=== PATIENT | female | born 1935 | race Caucasian/White ===

== ENCOUNTER 2019-08-02 10:17 | Outpatient (CLI) | payer MEDICARE, OTHER, SELFPAY ==
--- NOTE | 2019-08-03 06:46 | ONC FU_ITS ---
Dr. Kearney Patient Follow-Up Note Patient: Anastasiia Lopez Unit #: [id number]: 1935 Dicatated By: Eliecer Kearney M.D.Date of Visit:Aug 02, 2019 Onc Med Follow-up/Prog Note Chief Complaint: Breast cancer. History of Present Illness: This is an 83-year-old woman grade 2 infiltrating ductal carcinoma of the right breast, stage IIA (T2, N0, M0), ER/OH positive and HER-2/andrew negative. She had presented with a palpable lump in her right breast. Bilateral diagnostic mammogram and bilateral breast ultrasound on 12/18/2018 was BI-RADS Category 5, highly suggestive of malignancy. Findings included a high density spiculated soft tissue mass in the upper outer quadrant of the right breast at the 10:00 position. It measured 2.2 cm in diameter. There was architectural distortion extending anteriorly, posteriorly, and inferiorly from the mass lesion. Ultrasound showed a mass lesion of mixed decreased echotexture with posterior acoustic shadowing and irregular margins measuring 1.9 x 2.1 x 2.3 cm. Ultrasound-guided biopsy the right breast mass on 12/29/2018 showed grade 2 infiltrating ductal carcinoma. Breast prognostic profile ER positive at 99% and OH positive at 94%, both with strong intensity. The tumor was negative for overexpression of HER-2/andrew, 2+ by IHC and amplification ratio by FISH of 1.0 with 2.4 HER2 copies/cell. The Ki-67 was intermediate at 19%. I had seen her initially on 01/13/2019. Her her preliminary indication was that she did not want to pursue any further treatment for the breast cancer. However, after discussing it with her, she did agree to proceed with lumpectomy and axillary sentinel lymph node biopsy. The procedure was performed on 02/04/2019. Pathology showed grade 2 invasive ductal carcinoma measuring 2.4 cm in greatest dimension. The margins were not involved, the closest being the deep posterior margin measured at 0.4 cm. 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 There was no involvement in 1 axillary sentinel lymph node. She has been in good general health. Her other medical illnesses have been limited to degenerative arthritis and benign positional vertigo. She also has hyperlipidemia, but not requiring medication. She is a nonsmoker. I had seen her initially on 02/18/2019. She was agrreable to adjuvant hormonal therapy with an aromatase inhibitor. She opted not to take radiation. Her baseline Dexa scan showed osteopenia with T score -1.7 in the lumbar spine, -1.6 in the left hip, and -1.7 in the right hip. She began treatment with anastrozole 1 mg daily on 03/23/2019. She is seen for a followup visit. She has been feeling good generally. She has good energy and she has normal activity. ECOG score is 0. Her appetite is good. She has been trying to lose weight. She has no fever, night sweats, or hot flashes. She has had mild exertional dyspnea and she thinks she might have a mild case of asthma. She does not have cough, and she does not complain of chest pain. She has no GI complaints. She has frequent urination. She has some pain in her feet. She has no other joint or bone pain. She has no focal neurologic symptoms. Medications: Anastrozole 1 Tablet (of 1 mg) Oral daily, Glucosamine HCl 1 Tablet (of 1000 mg) Oral daily, healthy feet and nerve 1 Capsule daily Allergies: sulfa Review of Systems: Constitutional - Her energy is good. She has normal activity. Her appetite is good. She has been trying to lose weight. She has lost 2 pounds so far. No fever, chills, hot flashes, or night sweats. ECOG score is 0, ENMT - No sinus congestion/drainage. No mouth sores. No sore throat or difficulty swallowing, Hematologic/Lymphatic - She bruises easily, Respiratory - She has some shortness of breath with activity. No cough. No pleuritic pain or hemoptysis, Cardiovascular - No angina pain. No palpitations, Gastrointestinal - No nausea or vomiting. No heartburn or acid reflux. No diarrhea or constipation. No blood in the stool or black stools, Genitourinary (F) - No dysuria or hematuria. She has urinary frequency. No urgency or incontinence, Musculoskeletal - She has arthritis in her feet that has been unchanged for the last 10 years. She has no other joint or bone pain. , Integumentary - No skin complications, Neurologic - No headache or dizziness. No numbness/paresthesias or other focal neurologic symptoms, Psychiatric - No anxiety or depression. No insomnia. Vital Signs: Performed on Aug 02, 2019 10:31 Height - 65.50 in Weight - 156.2 lbs (LOW) BSA - 1.79 sq.m BMI - 25.60 Temperature - 98.4 F Pulse - 16 /min (LOW) Respiration - 78 /min (HIGH) BP - 158/94 mm(hg) (HIGH) O2 Sat - 97 % Pain - 0 Physical Examination: Constitutional - She looks good generally, Eyes - Sclerae nonicteric. Conjunctivae clear, ENMT - No lesions noted in the oral cavity, Hematologic/Lymphatic - No cervical, clavicular, or axillary adenopathy, Respiratory - Lungs are clear with good air movement bilaterally, Cardiovascular - Heart rhythm is regular. There is no murmur, gallop, or rub noted, Abdomen - Soft. Liver and spleen are not enlarged. There is no abdominal mass or ascites noted and there is no inguinal adenopathy, Extremities - Slight edema, Neurologic - No focal neurologic deficits noted. Impression: 1. Patient with grade 2 infiltrating ductal carcinoma of the right breast, stage IIA ( T2, N0, M0), ER/OH positive and HER-2/andrew negative. 2. She underwent lumpectomy with axillary sentinel lymph node biopsy on 02/04/2019. Her other medical illnesses include: 3. Hyperlipidemia, not requiring medication. 4. Degenerative arthritis. 5. Benign positional vertigo. She was agreeable to take adjuvant hormonal therapy, but she opted to not undergo radiation. On 03/23/2019 she began treatment with anastrozole 1 mg daily. Her baseline DEXA scan did show evidence of osteopenia with T score -1.7 in the lumbar spine, -1.6 in the left hip, and -1.7 in the right hip. Thus far she has been tolerating the anastrozole with no adverse effects other than her blood pressure is now mildly elevated, and she says she has never had high blood pressure before this. Plan: She will continue anastrozole 1 mg daily. She will come in to recheck her blood pressure at least once a week. If her blood pressure remains elevated, I will stop her treatment, at least temporarily. I will tentatively plan a followup visit in 3 months. Signed By: Eliecer Kearney M.D. <<Signature on File>>
== END 2019-08-02 10:18 | disposition home or self-care (01) ==
LOC: ONCMED 10:17
PROVIDERS: Family Provider Family Medicine; PCP Family Medicine; Visit Provider Internal Medicine Medical Oncology
DX: C50.411 Malignant neoplasm of upper-outer quadrant of right female breast (principal); Z17.0 Estrogen receptor positive status [ER+]; M19.90 Unspecified osteoarthritis, unspecified site; H81.10 Benign paroxysmal vertigo, unspecified ear; E78.5 Hyperlipidemia, unspecified; M85.88 Other specified disorders of bone density and structure, other site; Z79.811 Long term (current) use of aromatase inhibitors; M85.852 Other specified disorders of bone density and structure, left thigh; M85.851 Other specified disorders of bone density and structure, right thigh
CPT/HCPCS: 99214

== ENCOUNTER 2019-11-04 15:14 | Outpatient (CLI) | payer MEDICARE, OTHER, SELFPAY ==
--- NOTE | 2019-11-07 21:44 | ONC FU_ITS ---
Dr. Kearney Patient Follow-Up Note Patient: Anastasiia Lopez Unit #: [id number]: 1935 Dicatated By: Eliecer Kearney M.D.Date of Visit:November 04, 2019 Onc Med Follow-up/Prog Note Chief Complaint: Breast cancer. History of Present Illness: This is an 83 year-old woman grade 2 infiltrating ductal carcinoma of the right breast, stage IIA (T2, N0, M0), ER/KY positive and HER-2/andrew negative. She had presented with a palpable lump in her right breast. Bilateral diagnostic mammogram and bilateral breast ultrasound on 12/18/2018 was BI-RADS Category 5, highly suggestive of malignancy. Findings included a high density spiculated soft tissue mass in the upper outer quadrant of the right breast at the 10:00 position. It measured 2.2 cm in diameter. There was architectural distortion extending anteriorly, posteriorly, and inferiorly from the mass lesion. Ultrasound showed a mass lesion of mixed decreased echotexture with posterior acoustic shadowing and irregular margins measuring 1.9 x 2.1 x 2.3 cm. Ultrasound-guided biopsy the right breast mass on 12/29/2018 showed grade 2 infiltrating ductal carcinoma. Breast prognostic profile ER positive at 99% and KY positive at 94%, both with strong intensity. The tumor was negative for overexpression of HER-2/andrew, 2+ by IHC and amplification ratio by FISH of 1.0 with 2.4 HER2 copies/cell. The Ki-67 was intermediate at 19%. I had seen her initially on 01/13/2019. Her her preliminary indication was that she did not want to pursue any further treatment for the breast cancer. However, after discussing it with her, she did agree to proceed with lumpectomy and axillary sentinel lymph node biopsy. The procedure was performed on 02/04/2019. Pathology showed grade 2 invasive ductal carcinoma measuring 2.4 cm in greatest dimension. The margins were not involved, the closest being the deep posterior margin measured at 0.4 cm. 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 There was no involvement in 1 axillary sentinel lymph node. She has been in good general health. Her other medical illnesses have been limited to degenerative arthritis and benign positional vertigo. She also has hyperlipidemia, but not requiring medication. She is a nonsmoker. I had seen her initially on 02/18/2019. She was agrreable to adjuvant hormonal therapy with an aromatase inhibitor. She opted not to take radiation. Her baseline Dexa scan showed osteopenia with T score -1.7 in the lumbar spine, -1.6 in the left hip, and -1.7 in the right hip. She began treatment with anastrozole 1 mg daily on 03/23/2019. She stopped it approximately 6 weeks ago due to swelling in her legs and feet. She is seen for a followup visit. She has been feeling good generally. She says the swelling in her legs has almost completely resolved since she stopped taking the anastrozole. Her energy has been good. She says she is just lazy. She still has normal activity. Her appetite is good. She has no fever, night sweats, or hot flashes. She has no shortness of breath, cough, or chest pain. She recently had diarrhea for couple of days, but that has resolved. She has no other GI complaints. She has frequent urination. She has no significant joint or bone pain. She has occasional stress headache. She has some numbness/tingling in her right little finger. She has no other focal neurologic symptoms. Medications: Glucosamine HCl 1 Tablet (of 1000 mg) Oral daily, healthy feet and nerve 1 Capsule daily Allergies: sulfa Review of Systems: Constitutional - Her energy is good. She says she is just lazy. She still has normal activity. Her appetite is good. Her weight is stable. No fever, hot flashes, or night sweats. ECOG score is 0, ENMT - No sinus congestion/drainage. No mouth sores. No sore throat or difficulty swallowing, Hematologic/Lymphatic - She bruises easily, Respiratory - She has some shortness of breath with activity. No cough. No pleuritic pain or hemoptysis, Cardiovascular - No angina pain. No palpitations, Gastrointestinal - No nausea or vomiting. No heartburn or acid reflux. She recently had diarrhea for 2 days, but that has resolved. Bowels have otherwise been okay. No blood in the stool or black stools, Genitourinary (F) - No dysuria or hematuria. She has urinary frequency. No urgency or incontinence, Musculoskeletal - She was having swelling in her feet, now almost completely resolved. She has no significant joint or bone pain, Integumentary - No skin complications, Neurologic - She has occasional stress headache or dizziness. She has some numbness/tingling in her right little finger. She has no other focal neurologic symptoms, Psychiatric - No anxiety or depression. No insomnia. Vital Signs: Performed on November 04, 2019 15:23 Height - 65.50 in Weight - 157.0 lbs (HIGH) BSA - 1.79 sq.m BMI - 25.73 Temperature - 99.0 F (HIGH) Pulse - 75 /min Respiration - 20 /min BP - 155/85 mm(hg) (HIGH) O2 Sat - 97 % Pain - 0 Physical Examination: Constitutional - She looks good generally, Eyes - Sclerae nonicteric. Conjunctivae clear, ENMT - No lesions noted in the oral cavity, Hematologic/Lymphatic - No cervical, clavicular, or axillary adenopathy, Respiratory - Lungs are clear with good air movement bilaterally, Cardiovascular - Heart rhythm is regular. There is no murmur, gallop, or rub noted, Abdomen - Soft. Liver and spleen are not enlarged. There is no abdominal mass or ascites noted and there is no inguinal adenopathy, Extremities - Trace edema, Neurologic - No focal neurologic deficits noted. Impression: 1. Patient with grade 2 infiltrating ductal carcinoma of the right breast, stage IIA ( T2, N0, M0), ER/KY positive and HER-2/andrew negative. 2. She underwent lumpectomy with axillary sentinel lymph node biopsy on 02/04/2019. Her other medical illnesses include: 3. Hyperlipidemia, not requiring medication. 4. Degenerative arthritis. 5. Benign positional vertigo. She was agreeable to take adjuvant hormonal therapy, but she opted to not undergo radiation. On 03/23/2019 she began treatment with anastrozole 1 mg daily. Her baseline DEXA scan did show evidence of osteopenia with T score -1.7 in the lumbar spine, -1.6 in the left hip, and -1.7 in the right hip. She had initially been tolerating the anastrozole with no adverse effects other than her blood pressure had become mildly elevated. Approximately 6 weeks ago she stopped the anastrozole due to swelling in her legs and feet. The swelling has since then improved. Her blood pressure, though, remains mildly elevated. Plan: I will have her start treatment with triamterene/HCTZ. I will have her come in to check blood pressure at least once a week. Whenever it stabilizes in normal range I will plan to have her restart adjuvant hormonal therapy with exemestane, but that will be subject to verification of insurance coverage. Signed By: Eliecer Kearney M.D. <<Signature on File>>
== END 2019-11-04 15:15 | disposition home or self-care (01) ==
LOC: ONCMED 15:18
PROVIDERS: PCP Family Medicine; Visit Provider Internal Medicine Medical Oncology
DX: C50.411 Malignant neoplasm of upper-outer quadrant of right female breast (principal); Z17.0 Estrogen receptor positive status [ER+]; E78.5 Hyperlipidemia, unspecified; M19.90 Unspecified osteoarthritis, unspecified site; H81.10 Benign paroxysmal vertigo, unspecified ear; R03.0 Elevated blood-pressure reading, without diagnosis of hypertension; M79.89 Other specified soft tissue disorders; T45.1X5D Adverse effect of antineoplastic and immunosuppressive drugs, subsequent encounter; Z92.23 Personal history of estrogen therapy; Z79.899 Other long term (current) drug therapy
CPT/HCPCS: 99214

== ENCOUNTER 2019-11-16 11:23 | Outpatient (CLI) | payer MEDICARE, OTHER, SELFPAY ==
[2019-11-16 12:01] LABS: Basophils % 0.5 %; Eosinophils # 0.1 10^3/uL (0.0-0.8); Eosinophils % 1.6 %; Hematocrit 45.5 % (37.0-47.0); Hemoglobin 14.6 g/dL (11.5-15.3); Lymphocytes # 2.5 10^3/uL (0.8-4.8); Lymphocytes % 40.4 %; Mean Corpuscular HGB Conc 32.1 g/dL (30.0-36.0); Mean Corpuscular Hemoglobin 31.3 pg (28.0-34.0); Mean Corpuscular Volume 97.4 fL (81-99); Mean Platelet Volume 10.1 fL (7.4-10.4); Monocytes # 0.5 10^3/uL (0.2-0.9); Monocytes % 7.8 %; Neutrophils # 3.1 10^3/uL (1.8-7.7); Neutrophils % 49.5 %; Nucleated Red Blood Cells % 0 %; Platelet Count 190 10^3/cmm (130-400); Red Blood Count 4.67 10^6/uL (4.1-5.3); Red Cell Distribution Width 12.9 % (12.1-15.1); White Blood Count 6.2 10^3/uL (4.0-10.0)
[2019-11-16 13:03] LABS: Alanine Aminotransferase 10 U/L (0-33); Albumin Level 4.1 g/dL (3.5-5.2); Alkaline Phosphatase 62 IU/L (35-105); Anion Gap 13.9 (5-19); Aspartate Amino Transferase 19 U/L (0-32); Blood Urea Nitrogen 16 mg/dL (8-23); Calcium 10.4 mg/dL (8.5-10.5); Carbon Dioxide 29 mmol/L (22-29); Chloride 98 mmol/L (98-107); Globulin 2.8 g/dL (1.3-4.6); Glucose 97 mg/dL (65-115); Osmolality Calculated 280 mOsm/kg (285-295); Potassium 3.9 mmol/L (3.5-5.1); Sodium 137 mmol/L (136-145); Total Protein 6.9 g/dL (6.6-8.7)
== END 2019-11-16 11:24 | disposition home or self-care (01) ==
LOC: ONCMED 11:27
PROVIDERS: PCP Family Medicine; Visit Provider Nurse Practitioner
DX: C50.411 Malignant neoplasm of upper-outer quadrant of right female breast (principal); Z17.0 Estrogen receptor positive status [ER+]
CPT/HCPCS: 36415; 80053; 85025

== ENCOUNTER 2019-12-10 10:20 | Outpatient (CLI) | payer MEDICARE, OTHER, SELFPAY ==
[2019-12-10 10:57] LABS: Basophils % 0.7 %; Eosinophils # 0.1 10^3/uL (0.0-0.8); Eosinophils % 1.5 %; Hematocrit 44.8 % (37.0-47.0); Hemoglobin 14.5 g/dL (11.5-15.3); Lymphocytes # 2.4 10^3/uL (0.8-4.8); Lymphocytes % 39.1 %; Mean Corpuscular HGB Conc 32.4 g/dL (30.0-36.0); Mean Corpuscular Hemoglobin 31.1 pg (28.0-34.0); Mean Corpuscular Volume 96.1 fL (81-99); Mean Platelet Volume 9.6 fL (7.4-10.4); Monocytes # 0.5 10^3/uL (0.2-0.9); Monocytes % 7.8 %; Neutrophils # 3.1 10^3/uL (1.8-7.7); Neutrophils % 50.6 %; Nucleated Red Blood Cells % 0 %; Platelet Count 205 10^3/cmm (130-400); Red Blood Count 4.66 10^6/uL (4.1-5.3); Red Cell Distribution Width 12.9 % (12.1-15.1)
[2019-12-10 11:48] LABS: Alanine Aminotransferase 13 U/L (0-33); Albumin Level 4.2 g/dL (3.5-5.2); Alkaline Phosphatase 63 IU/L (35-105); Anion Gap 14.9 (5-19); Aspartate Amino Transferase 19 U/L (0-32); Blood Urea Nitrogen 14 mg/dL (8-23); Carbon Dioxide 30 mmol/L (22-29); Chloride 96 mmol/L (98-107); Globulin 2.4 g/dL (1.3-4.6); Glucose 96 mg/dL (65-115); Osmolality Calculated 280 mOsm/kg (285-295); Potassium 3.9 mmol/L (3.5-5.1); Sodium 137 mmol/L (136-145); Total Bilirubin 0.8 mg/dL (0.15-1.2); Total Protein 6.6 g/dL (6.6-8.7)
== END 2019-12-10 10:21 | disposition home or self-care (01) ==
LOC: ONCMED 10:24
PROVIDERS: PCP Family Medicine; Visit Provider Internal Medicine Medical Oncology
DX: C50.411 Malignant neoplasm of upper-outer quadrant of right female breast (principal); Z17.0 Estrogen receptor positive status [ER+]
CPT/HCPCS: 36415; 80053; 85025

== ENCOUNTER 2019-12-14 13:34 | Outpatient (CLI) | payer MEDICARE, OTHER, SELFPAY ==
--- NOTE | 2019-12-16 13:49 | ONC FU_ITS ---
[facility] Patient Note Patient: Anastasiia Lopez Unit #: [id number]: 1935 Dictated By: Letty KamaraDate of Visit: Dec 14, 2019 Onc MED Follow-Up/Prog Note Chief Complaint: Breast cancer. History of Present Illness: Ms Lopez is an 83 year-old woman grade 2 infiltrating ductal carcinoma of the right breast, stage IIA (T2, N0, M0), ER/MT positive and HER-2/andrew negative. She had presented with a palpable lump in her right breast. Bilateral diagnostic mammogram and bilateral breast ultrasound on 12/18/2018 was BI-RADS Category 5, highly suggestive of malignancy. Findings included a high density spiculated soft tissue mass in the upper outer quadrant of the right breast at the 10:00 position. It measured 2.2 cm in diameter. There was architectural distortion extending anteriorly, posteriorly, and inferiorly from the mass lesion. Ultrasound showed a mass lesion of mixed decreased echotexture with posterior acoustic shadowing and irregular margins measuring 1.9 x 2.1 x 2.3 cm. Ultrasound-guided biopsy the right breast mass on 12/29/2018 showed grade 2 infiltrating ductal carcinoma. Breast prognostic profile ER positive at 99% and MT positive at 94%, both with strong intensity. The tumor was negative for overexpression of HER-2/andrew, 2+ by IHC and amplification ratio by FISH of 1.0 with 2.4 HER2 copies/cell. The Ki-67 was intermediate at 19%. Dr Kearney had seen her initially on 01/13/2019. Her her preliminary indication was that she did not want to pursue any further treatment for the breast cancer. However, after discussing it with her, she did agree to proceed with lumpectomy and axillary sentinel lymph node biopsy. The procedure was performed on 02/04/2019. Pathology showed grade 2 invasive ductal carcinoma measuring 2.4 cm in greatest dimension. The margins were not involved, the closest being the deep posterior margin measured at 0.4 cm. 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 There was no involvement in 1 axillary sentinel lymph node. She has been in good general health. Her other medical illnesses have been limited to degenerative arthritis and benign positional vertigo. She also has hyperlipidemia, but not requiring medication. She is a nonsmoker. Dr Kearney had seen her initially on 02/18/2019. She was agrreable to adjuvant hormonal therapy with an aromatase inhibitor. She opted not to take radiation. Her baseline Dexa scan showed osteopenia with T score -1.7 in the lumbar spine, -1.6 in the left hip, and -1.7 in the right hip. She began treatment with anastrozole 1 mg daily on 03/23/2019. She stopped it due to swelling in her legs and feet. Ms Lopez She was seen for a followup visit in October 2019. She had been feeling good generally. She says the swelling in her legs had almost completely resolved since she stopped taking the anastrozole. She was started on triamterene/HCTZ and is tolerated this well. Her blood pressures have become more normal. Her only concern is that she is developed skin tags and started taking the HCTZ. She has not yet started the exemestane. She states she is in no hurry to do so. 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 She lives alone and has no assistance therefore cannot afford to be sick . She feels the swelling is better and is content with her blood pressure as it is. She states she is just trying to feel pretty good overall. She request to wait another month and then talk about adding the eczema stain at that time. She denies any shortness of breath orthopnea. She denies any chest pain or palpitations. She is eating good and again performed status is normal for her. 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 Her ECOG is 0. Past Medical History: Benign paroxysmal positional vertigo Hyperlipidemia Osteoarthritis Past Surgical History: Ultrasound-guided needle biopsy of the right breast in 2018 Cataract surgery in 2012 Colonoscopy in 2009 Right inguinal hernia repair in 1969 Allergies: sulfa Medications: Glucosamine HCl 1 Tablet (of 1000 mg) Oral daily healthy feet and nerve 1 Capsule daily Triamterene-HCTZ 1 Capsule (of 37.5-25 mg) Oral daily Family History: Ms. Lopez's mother at age 90: stroke. Ms. Lopez's father at age 93: old age, and stroke. Ms. Lopez has 1 son who is : brain cancer, and aids. Father at age 93 due to stroke complicating surgery for cardiac aneurysm. Mother of stroke at age 90. She has no siblings. Son at age 41 of HIV related brain cancer. Social History: Ms. Lopez is and she is retired. Ms. Lopez has never smoked. She is an active drinker. She is a nonsmoker. She has occasional alcohol use, limited to 3-4 oz of cam 3 to 4 times out of the year. Review Of Symptoms: Constitutional Denies fevers, chills, night sweats, excessive fatigue or weight loss. 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 Allergic/Immunologic No reactions. Eyes Denies significant visual changes. No diplopia. No amaurosis. ENMT Denies changes in hearing, sore throat, mouth sores, difficulty or changes in swallowing ability, and/or sinus drainage. Endocrine No diabetes, thyroid disease or hormone replacement. Denies hot flashes or night sweats. Hematologic/Lymphatic Denies easy bruising or bleeding. The patient denies any tender or palpable lymph nodes. Respiratory Denies dyspnea on exertion, chest pain, cough or hemoptysis. Denies orthopnea. Cardiovascular Denies anginal chest pain, palpitations or orthopnea. Gastrointestinal Denies nausea, vomiting, diarrhea, GI bleeding, or constipation. Denies change in bowel habits and/or stool color, no heartburn or early satiety. Genitourinary (F) No hematuria, hesitancy, incontinence, vaginal bleeding, discharge or other problems with urination. Musculoskeletal Denies joint pain, swelling or redness. No decreased range of motion. Integumentary Denies chronic rashes, inflammation, ulcerations or skin changes. Neurologic Denies headache, blurred vision, and no areas of focal weakness or numbness. Normal gait. No sensory problems. Psychiatric Denies insomnia, depression, lg or mood swings. Vital Signs: Performed on Dec 14, 2019 14:06 Height - 65.50 in Weight - 152.8 lbs (LOW) BSA - 1.77 sq.m BMI - 25.04 Temperature - 98.8 F Pulse - 70 /min Respiration - 17 /min BP - 153/80 mm(hg) (HIGH) O2 Sat - 95 % (LOW) Pain - 0,0 - Fully active, able to carry on all predisease activities without restrictions. (ECOG) Physical Examination: Constitutional Alert, oriented, no acute distress. Skin pink, warm and dry. Head Normocephalic; atraumatic. Eyes Conjunctivae and sclerae are clear and without icterus. Pupils are reactive and equal. ENMT No oral exudates, ulcers, masses, thrush or mucositis. Oropharynx clear. Tongue normal. Neck Supple without masses or thyromegaly. No jugular venous distension. Hematologic/Lymphatic No petechiae or purpura. No tender or palpable lymph nodes in the cervical or supraclavicular areas. Respiratory Lungs are clear to auscultation without rhonchi or wheezing. Cardiovascular Regular rate and rhythm of heart without murmurs,clicks, gallops or rubs. Abdomen Non-tender, non-distended, no masses or ascites. Good bowel sounds noted in all quads. No guarding or rebound tenderness. No pulsatile masses. Back/Spine Non-tender to palpation. Extremities No visible deformities, no cyanosis, clubbing or edema. Musculoskeletal No tenderness or swelling, normal range of motion without obvious weakness. Integumentary No rashes or lesions. Neurologic No sensory or motor deficits, normal cerebellar function, normal gait. Psychiatric Alert and oriented times three. Coherent speech. Verbalizes understanding of our discussions today. Laboratory:Test performed on Dec 10, 2019 10:40 Sodium 137 mmol/L Potassium 3.9 mmol/L Chloride 96 mmol/L CO2 30 mmol/L Anion Gap 14.9 BUN 14 mg/dL Creatinine 0.8 mg/dL Cr Clearance (Est) 59.9000 mL/min Glucose 96 mg/dL Calcium 10.0 mg/dL Protein, Total 6.6 g/dL Albumin 4.2 g/dL Globulin 2.4 g/dL Bilirubin, Total 0.8 mg/dL ALT (SGPT) 13 U/L AST (SGOT) 19 U/L Alkaline Phosphatase 63 IU/L WBC 6.0 10 3/uL RBC 4.66 10 6/uL HGB 14.5 g/dL HCT 44.8 % MCV 96.1 fL MCH 31.1 pg MCHC 32.4 g/dL RDW 12.9 % Platelet Count 205 10 3/cmm MPV 9.6 fL Neutrophils 3.1 10 3/uL Lymphocytes 2.4 10 3/uL Monocytes 0.5 10 3/uL Eosinophils 0.1 10 3/uL Basophils 0.0 10 3/uL Neutrophil % 50.6 % Lymphocyte % 39.1 % Monocyte % 7.8 % Eosinophil % 1.5 % Basophils % 0.7 % NRBC % 0 % Impression: 1. Patient with grade 2 infiltrating ductal carcinoma of the right breast, stage IIA ( T2, N0, M0), ER/MT positive and HER-2/andrew negative. 2. She underwent lumpectomy with axillary sentinel lymph node biopsy on 02/04/2019. Her other medical illnesses include: 3. Hyperlipidemia, not requiring medication. 4. Degenerative arthritis. 5. Benign positional vertigo. She was agreeable to take adjuvant hormonal therapy, but she opted to not undergo radiation. On 03/23/2019 she began treatment with anastrozole 1 mg daily. Her baseline DEXA scan did show evidence of osteopenia with T score -1.7 in the lumbar spine, -1.6 in the left hip, and -1.7 in the right hip. She had initially been tolerating the anastrozole with no adverse effects other than her blood pressure had become mildly elevated. Approximately 6 weeks ago she stopped the anastrozole due to swelling in her legs and feet. The swelling has since then improved. Her blood pressure is running normal at home but is slightly elevated here in the clinic, but overall improved. Plan: 1. continue with Triamterene/HCTZ. 2. She wishes to hold on the exemestane for another month. 3. Labs from December 10, 2019 were reviewed in detail and discussed with her and a copy was given to her. WBC 6.0, hemoglobin 14.5, platelets 205,000 ANC is 3100. Potassium 3.9 creatinine 0.8 random glucose 96 LFTs are normal. 4. She will be due for mammogram after December 18. This will be bilateral diagnostic and compared to the last one on the right breast which was done on December 18, 2018. 5. We will plan to see her back in 1 month with CBC CMP which time we will revisit her starting the exemestane. She states she is more concerned about the blood pressure then she has the breast cancer and just does not want to start the exemestane at this point. 7. Ms Lopez was instructed to call us in the interim if questions or problems arise. Signed By: Letty Kamara-, [facility] Eliecer Kearney MD <<Signature on File>>
== END 2019-12-14 13:35 | disposition home or self-care (01) ==
LOC: ONCMED 13:40
PROVIDERS: PCP Family Medicine; Visit Provider Nurse Practitioner
DX: C50.411 Malignant neoplasm of upper-outer quadrant of right female breast (principal); Z17.0 Estrogen receptor positive status [ER+]; E78.5 Hyperlipidemia, unspecified; M19.90 Unspecified osteoarthritis, unspecified site; H81.10 Benign paroxysmal vertigo, unspecified ear; M85.80 Other specified disorders of bone density and structure, unspecified site; Z92.23 Personal history of estrogen therapy; Z79.899 Other long term (current) drug therapy
CPT/HCPCS: 99214

== ENCOUNTER 2019-12-22 10:29 | Outpatient (CLI) | payer MEDICARE, OTHER, SELFPAY ==
--- NOTE | 2019-12-22 10:35 | MM_ITS ---
WS: [id number] BILATERAL DIGITAL DIAGNOSTIC MAMMOGRAM MAMMOGRAPHY WITH CAD CLINICAL INFORMATION: HX OF BREAST CA COMPARISON: 7 TECHNIQUE: Bilateral CC, MLO, and ML views. FINDINGS: Scattered fibroglandular densities bilaterally. Vascular calcification. Interval postoperative change s right lumpectomy with resection of the previous described mammographic lesion. Scarring right breast with treatment-related changes. Satisfactory postoperative appearance. No suspicious focal mass, asymmetry, calcifications, or architectural distortion. MM/[place] [id number] IMPRESSION: BI-RADS: 2-Benign FOLLOW UP: 1 Year Follow-up Recommend return to annual diagnostic mammography.
== END 2019-12-22 10:30 | disposition home or self-care (01) ==
LOC: RADSHAW 10:33
PROVIDERS: PCP Family Medicine; Visit Provider Nurse Practitioner
DX: Z85.3 Personal history of malignant neoplasm of breast (principal)
CPT/HCPCS: 77066

== ENCOUNTER 2020-01-14 09:17 | Outpatient (CLI) | payer MEDICARE, OTHER, SELFPAY ==
[2020-01-14 09:39] LABS: Basophils % 0.6 %; Eosinophils # 0.1 10^3/uL (0.0-0.8); Eosinophils % 1.2 %; Hematocrit 44.1 % (37.0-47.0); Hemoglobin 14.1 g/dL (11.5-15.3); Lymphocytes # 1.6 10^3/uL (0.8-4.8); Lymphocytes % 31.3 %; Mean Corpuscular Hemoglobin 30.5 pg (28.0-34.0); Mean Corpuscular Volume 95.2 fL (81-99); Mean Platelet Volume 9.3 fL (7.4-10.4); Monocytes # 0.6 10^3/uL (0.2-0.9); Monocytes % 11.8 %; Neutrophils # 2.74 10^3/uL (1.8-7.7); Neutrophils % 54.9 %; Nucleated Red Blood Cells % 0 %; Platelet Count 185 10^3/cmm (130-400); Red Blood Count 4.63 10^6/uL (4.1-5.3)
[2020-01-14 10:04] LABS: Alanine Aminotransferase 13 U/L (0-33); Albumin Level 4.1 g/dL (3.5-5.2); Alkaline Phosphatase 64 IU/L (35-105); Anion Gap 12.9 (5-19); Aspartate Amino Transferase 22 U/L (0-32); Blood Urea Nitrogen 13 mg/dL (8-23); Calcium 9.1 mg/dL (8.5-10.5); Carbon Dioxide 29 mmol/L (22-29); Chloride 100 mmol/L (98-107); Globulin 2.7 g/dL (1.3-4.6); Glucose 102 mg/dL (65-115); Osmolality Calculated 282 mOsm/kg (285-295); Potassium 3.9 mmol/L (3.5-5.1); Sodium 138 mmol/L (136-145); Total Bilirubin 0.9 mg/dL (0.15-1.2); Total Protein 6.8 g/dL (6.6-8.7)
== END 2020-01-14 09:18 | disposition home or self-care (01) ==
LOC: ONCMED 09:23
PROVIDERS: PCP Family Medicine; Visit Provider Nurse Practitioner
DX: C50.411 Malignant neoplasm of upper-outer quadrant of right female breast (principal); Z17.0 Estrogen receptor positive status [ER+]; I10 Essential (primary) hypertension
CPT/HCPCS: 80053; 85025

== ENCOUNTER 2020-01-18 14:40 | Outpatient (CLI) | payer MEDICARE, OTHER, SELFPAY ==
--- NOTE | 2020-01-22 13:26 | ONC FU_ITS ---
Dr. Kearney Patient Follow-Up Note Patient: Anastasiia Lopez Unit #: [id number]: 1935 Dicatated By: Eliecer Kearney M.D.Date of Visit:Jan 18, 2020 Onc Med Follow-up/Prog Note Chief Complaint: Breast cancer. History of Present Illness: This is an 83 year-old woman grade 2 infiltrating ductal carcinoma of the right breast, stage IIA (T2, N0, M0), ER/ID positive and HER-2/andrew negative. She had presented with a palpable lump in her right breast. Bilateral diagnostic mammogram and bilateral breast ultrasound on 12/18/2018 was BI-RADS Category 5, highly suggestive of malignancy. Findings included a high density spiculated soft tissue mass in the upper outer quadrant of the right breast at the 10:00 position. It measured 2.2 cm in diameter. There was architectural distortion extending anteriorly, posteriorly, and inferiorly from the mass lesion. Ultrasound showed a mass lesion of mixed decreased echotexture with posterior acoustic shadowing and irregular margins measuring 1.9 x 2.1 x 2.3 cm. Ultrasound-guided biopsy the right breast mass on 12/29/2018 showed grade 2 infiltrating ductal carcinoma. Breast prognostic profile ER positive at 99% and ID positive at 94%, both with strong intensity. The tumor was negative for overexpression of HER-2/andrew, 2+ by IHC and amplification ratio by FISH of 1.0 with 2.4 HER2 copies/cell. The Ki-67 was intermediate at 19%. I had seen her initially on 01/13/2019. Her her preliminary indication was that she did not want to pursue any further treatment for the breast cancer. However, after discussing it with her, she did agree to proceed with lumpectomy and axillary sentinel lymph node biopsy. The procedure was performed on 02/04/2019. Pathology showed grade 2 invasive ductal carcinoma measuring 2.4 cm in greatest dimension. The margins were not involved, the closest being the deep posterior margin measured at 0.4 cm. 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 There was no involvement in 1 axillary sentinel lymph node. She has been in good general health. Her other medical illnesses have been limited to degenerative arthritis and benign positional vertigo. She also has hyperlipidemia, but not requiring medication. She is a nonsmoker. I had seen her initially on 02/18/2019. She was agrreable to adjuvant hormonal therapy with an aromatase inhibitor. She opted not to take radiation. Her baseline Dexa scan showed osteopenia with T score -1.7 in the lumbar spine, -1.6 in the left hip, and -1.7 in the right hip. She began treatment with anastrozole 1 mg daily on 03/23/2019. She had stopped it somewhere around the beginning of September due to swelling in her legs and feet. I had seen her for a follow-up visit on 11/04/2019. At that point her blood pressure was still elevated, and I had her start triamterene/HCTZ for his hypertension and swelling. She is seen for a followup visit. She has been feeling good generally, but she recently stopped the triamterene/HCTZ because she was breaking out with itchy bumps in her neck/upper chest area. Overall her energy is better now. She has normal activity. Her appetite is good. She has not had fever. She has had hot flashes since she started menopause around age 51. She has no shortness of breath, cough, or chest pain. She has no GI or complaints. She has burning in her toes, for which she is taking chondroitin sulfate. She has no significant joint or bone pain. She has no focal neurologic symptoms. Medications: Glucosamine HCl 1 Tablet (of 1000 mg) Oral daily, healthy feet and nerve 1 Capsule daily, Triamterene-HCTZ 1 Capsule (of 37.5-25 mg) Oral daily Allergies: sulfa Review of Systems: Constitutional - She has been feeling good generally. Her energy has improved. She has normal activity without restrictions. Her appetite is good and weight is stable. No fever or night sweats. She has frequent hot flashes, which is unchanged. ECOG score is 0, ENMT - No sinus congestion/drainage. No mouth sores. No sore throat or difficulty swallowing, Hematologic/Lymphatic - No abnormal bruising or bleeding, Respiratory - No shortness of breath. No cough. No pleuritic pain or hemoptysis, Cardiovascular - No angina pain. No palpitations, Gastrointestinal - No nausea or vomiting. No heartburn or acid reflux. No diarrhea or constipation. No blood in the stool or black stools, Genitourinary (F) - No dysuria or hematuria. No urinary frequency. No urgency or incontinence, Musculoskeletal - No joint or bone pain, Integumentary - She has been having a rash to her neck/chest area for a few weeks, Neurologic - No headache or dizziness. No numbness/tingling, but she has burning in her toes. No other focal neurologic symptoms, Psychiatric - No anxiety or depression. No insomnia. Vital Signs: Performed on Jan 18, 2020 14:54 Height - 65.50 in Weight - 152.8 lbs BSA - 1.77 sq.m BMI - 25.04 Temperature - 98.7 F Pulse - 71 /min Respiration - 20 /min BP - 140/90 mm(hg) O2 Sat - 99 % Pain - 0 Physical Examination: Constitutional - She looks good generally, Eyes - Sclerae nonicteric. Conjunctivae clear, ENMT - No lesions noted in the oral cavity, Hematologic/Lymphatic - No cervical, clavicular, or axillary adenopathy, Respiratory - Lungs are clear with good air movement bilaterally, Cardiovascular - Heart rhythm is regular. There is no murmur, gallop, or rub noted, Abdomen - Soft. Liver and spleen are not enlarged. There is no abdominal mass or ascites noted and there is no inguinal adenopathy, Extremities - No edema, Integumentary - She has scattered, small erythematous lesions in the neck and upper trunk area, Neurologic - No focal neurologic deficits noted. Impression: 1. Patient with grade 2 infiltrating ductal carcinoma of the right breast, stage IIA ( T2, N0, M0), ER/ID positive and HER-2/andrew negative. 2. She underwent lumpectomy with axillary sentinel lymph node biopsy on 02/04/2019. Her other medical illnesses include: 3. Hyperlipidemia, not requiring medication. 4. Degenerative arthritis. 5. Benign positional vertigo. She was agreeable to take adjuvant hormonal therapy, but she opted to not undergo radiation. On 03/23/2019 she began treatment with anastrozole 1 mg daily. Her baseline DEXA scan did show evidence of osteopenia with T score -1.7 in the lumbar spine, -1.6 in the left hip, and -1.7 in the right hip. She had initially been tolerating the anastrozole with no adverse effects other than her blood pressure had become mildly elevated. Sometime around the end of September she had stopped the anastrozole due to swelling in her legs and feet. The swelling had then improved somewhat, but her blood pressure remained elevated. Following her visit in October 2019 she had started triamterene/HCTZ, but that recently was stopped because of a skin eruption. She has otherwise been feeling good and overall she appears to be doing well clinically with no evidence of recurrence of the breast cancer. Her blood pressure, though, is still a little elevated. Plan: She will remain off the triamterene/HCTZ. She will now start amlodipine 5 mg daily for the hypertension. I will see her again in 1 month and at that point I hope to restart her adjuvant hormonal therapy. Signed By: Eliecer Kearney M.D. <<Signature on File>>
== END 2020-01-18 14:41 | disposition home or self-care (01) ==
LOC: ONCMED 14:44
PROVIDERS: PCP Family Medicine; Visit Provider Internal Medicine Medical Oncology
DX: C50.411 Malignant neoplasm of upper-outer quadrant of right female breast (principal); I10 Essential (primary) hypertension; T45.1X5D Adverse effect of antineoplastic and immunosuppressive drugs, subsequent encounter; E78.5 Hyperlipidemia, unspecified; M19.90 Unspecified osteoarthritis, unspecified site; H81.10 Benign paroxysmal vertigo, unspecified ear; Z17.0 Estrogen receptor positive status [ER+]; Z92.23 Personal history of estrogen therapy
CPT/HCPCS: 99214

== ENCOUNTER 2020-02-23 15:41 | Outpatient (CLI) | payer MEDICARE, OTHER, SELFPAY ==
--- NOTE | 2020-02-27 11:09 | ONC FU_ITS ---
Dr. Kearney Patient Follow-Up Note Patient: Anastasiia Lopez Unit #: [id number]: 1935 Dicatated By: Eliecer Kearney M.D.Date of Visit:Feb 23, 2020 Onc Med Follow-up/Prog Note Chief Complaint: Breast cancer. History of Present Illness: This is an 84 year-old woman grade 2 infiltrating ductal carcinoma of the right breast, stage IIA (T2, N0, M0), ER/NV positive and HER-2/andrew negative. She had presented with a palpable lump in her right breast. Bilateral diagnostic mammogram and bilateral breast ultrasound on 12/18/2018 was BI-RADS Category 5, highly suggestive of malignancy. Findings included a high density spiculated soft tissue mass in the upper outer quadrant of the right breast at the 10:00 position. It measured 2.2 cm in diameter. There was architectural distortion extending anteriorly, posteriorly, and inferiorly from the mass lesion. Ultrasound showed a mass lesion of mixed decreased echotexture with posterior acoustic shadowing and irregular margins measuring 1.9 x 2.1 x 2.3 cm. Ultrasound-guided biopsy the right breast mass on 12/29/2018 showed grade 2 infiltrating ductal carcinoma. Breast prognostic profile ER positive at 99% and NV positive at 94%, both with strong intensity. The tumor was negative for overexpression of HER-2/andrew, 2+ by IHC and amplification ratio by FISH of 1.0 with 2.4 HER2 copies/cell. The Ki-67 was intermediate at 19%. I had seen her initially on 01/13/2019. Her her preliminary indication was that she did not want to pursue any further treatment for the breast cancer. However, after discussing it with her, she did agree to proceed with lumpectomy and axillary sentinel lymph node biopsy. The procedure was performed on 02/04/2019. Pathology showed grade 2 invasive ductal carcinoma measuring 2.4 cm in greatest dimension. The margins were not involved, the closest being the deep posterior margin measured at 0.4 cm. 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 There was no involvement in 1 axillary sentinel lymph node. She has been in good general health. Her other medical illnesses have been limited to degenerative arthritis and benign positional vertigo. She also has hyperlipidemia, but not requiring medication. She is a nonsmoker. I had seen her initially on 02/18/2019. She was agrreable to adjuvant hormonal therapy with an aromatase inhibitor. She opted not to take radiation. Her baseline Dexa scan showed osteopenia with T score -1.7 in the lumbar spine, -1.6 in the left hip, and -1.7 in the right hip. She began treatment with anastrozole 1 mg daily on 03/23/2019. She had stopped it somewhere around the beginning of September due to swelling in her legs and feet. I had seen her for a follow-up visit on 11/04/2019. At that point her blood pressure was still elevated, and I had her start triamterene/HCTZ for her hypertension and swelling. However, within a month it had to be stopped due to development of a hypersensitivity skin eruption. She was then started on amlodipine 5 mg daily, which had to be stopped because of swelling. As of 01/27/2020 her blood pressure medication was changed to metoprolol 25 mg twice daily. She is seen for a followup visit. Thus far she has been able to tolerate the metoprolol with no adverse effects. She says she is feeling fine other than she has had some decline in her activity tolerance which she just attributes to being lazy. Her ECOG score is 1. Her appetite is good. She has not had fever. She says she always has hot flashes. She has no shortness of breath, cough, or chest pain. She has no GI or complaints. She has normal arthritis pain in her feet. She has no focal neurologic symptoms. Medications: Glucosamine HCl 1 Tablet (of 1000 mg) Oral daily, healthy feet and nerve 1 Capsule daily, Triamterene-HCTZ 1 Capsule (of 37.5-25 mg) Oral daily Allergies: sulfa Review of Systems: Constitutional - She is doing well. She says her energy is good, but she feels lazy. Her appetite is good and her weight is up a few pounds. No fevers or night sweats. She has constant hot flashes, which is chronic for her. ECOG score is 1, ENMT - No sinus congestion/drainage. No mouth sores. No sore throat or difficulty swallowing, Hematologic/Lymphatic - No abnormal bruising or bleeding, Respiratory - No shortness of breath. No cough. No pleuritic pain or hemoptysis, Cardiovascular - No angina pain. No palpitations, Gastrointestinal - No nausea or vomiting. No heartburn or acid reflux. No diarrhea or constipation. No blood in the stool or black stools, Genitourinary (F) - No dysuria or hematuria. No urinary frequency. No urgency or incontinence, Musculoskeletal - She has arthritis pain in her feet, Integumentary - No skin complications, Neurologic - No headache or dizziness. No numbness or tingling. No other focal neurologic symptoms, Psychiatric - No anxiety or depression. No insomnia. Vital Signs: Performed on Feb 23, 2020 15:54 Height - 65.50 in Weight - 156.6 lbs (HIGH) BSA - 1.79 sq.m BMI - 25.66 Temperature - 98.1 F (LOW) Pulse - 64 /min Respiration - 20 /min BP - 151/82 mm(hg) (HIGH) O2 Sat - 96 % Pain - 0 Physical Examination: Constitutional - She looks good generally, Eyes - Sclerae nonicteric. Conjunctivae clear, ENMT - No lesions noted in the oral cavity, Hematologic/Lymphatic - No cervical, clavicular, or axillary adenopathy, Respiratory - Lungs are clear with good air movement bilaterally, Cardiovascular - Heart rhythm is regular. There is no murmur, gallop, or rub noted, Abdomen - Soft. Liver and spleen are not enlarged. There is no abdominal mass or ascites noted and there is no inguinal adenopathy, Extremities - Mild edema at the ankles, Integumentary - No skin eruption, Neurologic - No focal neurologic deficits noted. Lab/Imaging: Test performed on Dec 10, 2019 10:40 Sodium 137 mmol/L Potassium 3.9 mmol/L Chloride 96 mmol/L CO2 30 mmol/L Anion Gap 14.9 BUN 14 mg/dL Creatinine 0.8 mg/dL Cr Clearance (Est) 59.9000 mL/min Glucose 96 mg/dL Calcium 10.0 mg/dL Protein, Total 6.6 g/dL Albumin 4.2 g/dL Globulin 2.4 g/dL Bilirubin, Total 0.8 mg/dL ALT (SGPT) 13 U/L AST (SGOT) 19 U/L Alkaline Phosphatase 63 IU/L WBC 6.0 10 3/uL RBC 4.66 10 6/uL HGB 14.5 g/dL HCT 44.8 % MCV 96.1 fL MCH 31.1 pg MCHC 32.4 g/dL RDW 12.9 % Platelet Count 205 10 3/cmm MPV 9.6 fL Neutrophils 3.1 10 3/uL Lymphocytes 2.4 10 3/uL Monocytes 0.5 10 3/uL Eosinophils 0.1 10 3/uL Basophils 0.0 10 3/uL Neutrophil % 50.6 % Lymphocyte % 39.1 % Monocyte % 7.8 % Eosinophil % 1.5 % Basophils % 0.7 % NRBC % 0 % Impression: 1. Patient with grade 2 infiltrating ductal carcinoma of the right breast, stage IIA ( T2, N0, M0), ER/NV positive and HER-2/andrew negative. 2. She underwent lumpectomy with axillary sentinel lymph node biopsy on 02/04/2019. Her other medical illnesses include: 3. Hyperlipidemia, not requiring medication. 4. Degenerative arthritis. 5. Benign positional vertigo. She was agreeable to take adjuvant hormonal therapy, but she opted to not undergo radiation. On 03/23/2019 she began treatment with anastrozole 1 mg daily. Her baseline DEXA scan did show evidence of osteopenia with T score -1.7 in the lumbar spine, -1.6 in the left hip, and -1.7 in the right hip. She had initially been tolerating the anastrozole with no adverse effects other than her blood pressure had become mildly elevated. Sometime around the end of September she had stopped the anastrozole due to swelling in her legs and feet. The swelling had then improved somewhat, but her blood pressure remained elevated. Following her visit in October 2019 she had started triamterene/HCTZ, but that had to be stopped because of a hypersenstivity skin eruption. She was then started on amlodipine, which also caused swelling. As of 01/27/2020 her blood pressure medication was changed to metoprolol 25 mg twice daily, and thus far she has been able to tolerate it with no adverse effects. Plan: She will now begin further adjuvant hormonal therapy with exemestane 25 mg daily. She continues metoprolol 25 mg twice daily for the hypertension. She will be scheduled for a follow-up visit in 1 month. Signed By: Eliecer Kearney M.D. <<Signature on File>>
== END 2020-02-23 15:42 | disposition home or self-care (01) ==
LOC: ONCMED 15:44
PROVIDERS: PCP Family Medicine; Visit Provider Internal Medicine Medical Oncology
DX: C50.411 Malignant neoplasm of upper-outer quadrant of right female breast (principal); Z17.0 Estrogen receptor positive status [ER+]; E78.5 Hyperlipidemia, unspecified; M19.90 Unspecified osteoarthritis, unspecified site; H81.10 Benign paroxysmal vertigo, unspecified ear; I10 Essential (primary) hypertension; Z92.23 Personal history of estrogen therapy
CPT/HCPCS: 99214

== ENCOUNTER 2020-04-06 12:42 | Outpatient (CLI) | payer MEDICARE, OTHER, SELFPAY ==
--- NOTE | 2020-04-09 21:11 | ONC FU_ITS ---
Dr. Kearney Patient Follow-Up Note Patient: Anastasiia Lopez Unit #: [id number]: 1935 Dicatated By: Eliecer Kearney M.D.Date of Visit:Apr 06, 2020 Onc Med Follow-up/Prog Note Chief Complaint: Breast cancer. History of Present Illness: This is an 84 year-old woman grade 2 infiltrating ductal carcinoma of the right breast, stage IIA (T2, N0, M0), ER/CA positive and HER-2/andrew negative. She had presented with a palpable lump in her right breast. Bilateral diagnostic mammogram and bilateral breast ultrasound on 12/18/2018 was BI-RADS Category 5, highly suggestive of malignancy. Findings included a high density spiculated soft tissue mass in the upper outer quadrant of the right breast at the 10:00 position. It measured 2.2 cm in diameter. There was architectural distortion extending anteriorly, posteriorly, and inferiorly from the mass lesion. Ultrasound showed a mass lesion of mixed decreased echotexture with posterior acoustic shadowing and irregular margins measuring 1.9 x 2.1 x 2.3 cm. Ultrasound-guided biopsy the right breast mass on 12/29/2018 showed grade 2 infiltrating ductal carcinoma. Breast prognostic profile ER positive at 99% and CA positive at 94%, both with strong intensity. The tumor was negative for overexpression of HER-2/andrew, 2+ by IHC and amplification ratio by FISH of 1.0 with 2.4 HER2 copies/cell. The Ki-67 was intermediate at 19%. I had seen her initially on 01/13/2019. Her her preliminary indication was that she did not want to pursue any further treatment for the breast cancer. However, after discussing it with her, she did agree to proceed with lumpectomy and axillary sentinel lymph node biopsy. The procedure was performed on 02/04/2019. Pathology showed grade 2 invasive ductal carcinoma measuring 2.4 cm in greatest dimension. The margins were not involved, the closest being the deep posterior margin measured at 0.4 cm. 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 There was no involvement in 1 axillary sentinel lymph node. She has been in good general health. Her other medical illnesses have been limited to degenerative arthritis and benign positional vertigo. She also has hyperlipidemia, but not requiring medication. She is a nonsmoker. I had seen her initially on 02/18/2019. She was agrreable to adjuvant hormonal therapy with an aromatase inhibitor. She opted not to take radiation. Her baseline Dexa scan showed osteopenia with T score -1.7 in the lumbar spine, -1.6 in the left hip, and -1.7 in the right hip. She began treatment with anastrozole 1 mg daily on 03/23/2019. She had stopped it somewhere around the beginning of September due to swelling in her legs and feet. I had seen her for a follow-up visit on 11/04/2019. At that point her blood pressure was still elevated, and I had her start triamterene/HCTZ for her hypertension and swelling. However, within a month it had to be stopped due to development of a hypersensitivity skin eruption. She was then started on amlodipine 5 mg daily, which had to be stopped because of swelling. As of 01/27/2020 her blood pressure medication was changed to metoprolol 25 mg twice daily. She tolerated it well and has of her follow-up visit on 02/23/2020 she began adjuvant hormonal therapy with exemestane 25 mg daily. She is seen for a followup visit. She recently had recurrence of skin eruption on her face and neck. It occurred after her pharmacy had refilled her prescription for amlodipine. She has been off both the amlodipine and the exemestane since the sixth of this month. She really has no other significant complaints other than she has been nervous. Medications: Glucosamine HCl 1 Tablet (of 1000 mg) Oral daily, healthy feet and nerve 1 Capsule daily, Triamterene-HCTZ 1 Capsule (of 37.5-25 mg) Oral daily Allergies: amLODIPine Besylate and sulfa. Review of Systems: Constitutional - She feels good generally. She has good energy is good and she has normal activity without restrictions. Her appetite is good and her weight is stable. No fever, night sweats, or hot flashes. ECOG score is 0, ENMT - No sinus congestion/drainage. No mouth sores. No sore throat or difficulty swallowing, Hematologic/Lymphatic - No abnormal bruising or bleeding, Respiratory - No shortness of breath. No cough. No pleuritic pain or hemoptysis, Cardiovascular - No angina pain. No palpitations, Gastrointestinal - No nausea or vomiting. No heartburn or acid reflux. No diarrhea or constipation. No blood in the stool or black stools, Genitourinary (F) - No dysuria or hematuria. No urinary frequency. No urgency or incontinence, Musculoskeletal - No joint or bone pain, Integumentary - She has a scattered rash to her face, reports it started about 3 weeks ago after she started taking the Amlodipine again, Neurologic - No headache or dizziness. No numbness or tingling. No other focal neurologic symptoms, Psychiatric - She is very anxious today. No depression. No insomnia. Vital Signs: Performed on Apr 06, 2020 13:15 Height - 65.50 in Weight - 158.4 lbs (HIGH) BSA - 1.80 sq.m BMI - 25.96 Temperature - 98.4 F Pulse - 86 /min Respiration - 16 /min BP - 192/72 mm(hg) (HIGH) O2 Sat - 97 % Pain - 0 Physical Examination: Constitutional - She looks good generally, Eyes - Sclerae nonicteric. Conjunctivae clear, ENMT - No lesions noted in the oral cavity, Hematologic/Lymphatic - No cervical, clavicular, or axillary adenopathy, Respiratory - Lungs are clear with good air movement bilaterally, Cardiovascular - Heart rhythm is regular. There is no murmur, gallop, or rub noted, Abdomen - Soft. Liver and spleen are not enlarged. There is no abdominal mass or ascites noted and there is no inguinal adenopathy, Extremities - No edema, Integumentary - There are scattered small erythematous lesions on her face and neck, Neurologic - No focal neurologic deficits noted. Impression: 1. Patient with grade 2 infiltrating ductal carcinoma of the right breast, stage IIA ( T2, N0, M0), ER/CA positive and HER-2/andrew negative. 2. She underwent lumpectomy with axillary sentinel lymph node biopsy on 02/04/2019. Her other medical illnesses include: 3. Hyperlipidemia, not requiring medication. 4. Degenerative arthritis. 5. Benign positional vertigo. She was agreeable to take adjuvant hormonal therapy, but she opted to not undergo radiation. On 03/23/2019 she began treatment with anastrozole 1 mg daily. Her baseline DEXA scan did show evidence of osteopenia with T score -1.7 in the lumbar spine, -1.6 in the left hip, and -1.7 in the right hip. She had initially been tolerating the anastrozole with no adverse effects other than her blood pressure had become mildly elevated. Sometime around the end of September she had stopped the anastrozole due to swelling in her legs and feet. The swelling had then improved somewhat, but her blood pressure remained elevated. Following her visit in October 2019 she had started triamterene/HCTZ, but that had to be stopped because of a hypersenstivity skin eruption. She was then started on amlodipine, which also caused swelling. As of 01/27/2020 her blood pressure medication was changed to metoprolol 25 mg twice daily. She tolerated it well and as of 02/23/2020 she began adjuvant hormonal therapy with exemestane 25 mg daily. She had stopped it again approximately 2 weeks ago due to recurrence of a skin eruption on her face and neck, apparently due to her pharmacy having refilled her amlodipine. Plan: She will restart metoprolol 25 mg twice daily. At least for now the exemestane will remain on hold, but if the skin eruption resolves within the next 2 weeks, I will have her restart it. Signed By: Eliecer Kearney M.D. <<Signature on File>>
== END 2020-04-06 12:43 | disposition home or self-care (01) ==
LOC: ONCMED 12:45
PROVIDERS: PCP Family Medicine; Visit Provider Internal Medicine Medical Oncology
DX: C50.411 Malignant neoplasm of upper-outer quadrant of right female breast (principal); R21 Rash and other nonspecific skin eruption; E78.5 Hyperlipidemia, unspecified; M19.90 Unspecified osteoarthritis, unspecified site; H81.10 Benign paroxysmal vertigo, unspecified ear; M85.88 Other specified disorders of bone density and structure, other site; Z17.0 Estrogen receptor positive status [ER+]; Z79.811 Long term (current) use of aromatase inhibitors
CPT/HCPCS: G0463

== ENCOUNTER 2020-05-03 12:45 | Outpatient (CLI) | payer MEDICARE, OTHER, SELFPAY ==
--- NOTE | 2020-05-07 11:11 | ONC FU_ITS ---
Dr. Kearney Patient Follow-Up Note Patient: Anastasiia Lopez Unit #: [id number]: 1935 Dicatated By: Eliecer Kearney M.D.Date of Visit:May 03, 2020 Onc Med Follow-up/Prog Note Chief Complaint: Breast cancer. History of Present Illness: This is an 84 year-old woman grade 2 infiltrating ductal carcinoma of the right breast, stage IIA (T2, N0, M0), ER/ME positive and HER-2/andrew negative. She had presented with a palpable lump in her right breast. Bilateral diagnostic mammogram and bilateral breast ultrasound on 12/18/2018 was BI-RADS Category 5, highly suggestive of malignancy. Findings included a high density spiculated soft tissue mass in the upper outer quadrant of the right breast at the 10:00 position. It measured 2.2 cm in diameter. There was architectural distortion extending anteriorly, posteriorly, and inferiorly from the mass lesion. Ultrasound showed a mass lesion of mixed decreased echotexture with posterior acoustic shadowing and irregular margins measuring 1.9 x 2.1 x 2.3 cm. Ultrasound-guided biopsy the right breast mass on 12/29/2018 showed grade 2 infiltrating ductal carcinoma. Breast prognostic profile ER positive at 99% and ME positive at 94%, both with strong intensity. The tumor was negative for overexpression of HER-2/andrew, 2+ by IHC and amplification ratio by FISH of 1.0 with 2.4 HER2 copies/cell. The Ki-67 was intermediate at 19%. I had seen her initially on 01/13/2019. Her her preliminary indication was that she did not want to pursue any further treatment for the breast cancer. However, after discussing it with her, she did agree to proceed with lumpectomy and axillary sentinel lymph node biopsy. The procedure was performed on 02/04/2019. Pathology showed grade 2 invasive ductal carcinoma measuring 2.4 cm in greatest dimension. The margins were not involved, the closest being the deep posterior margin measured at 0.4 cm. 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 There was no involvement in 1 axillary sentinel lymph node. She has been in good general health. Her other medical illnesses have been limited to degenerative arthritis and benign positional vertigo. She also has hyperlipidemia, but not requiring medication. She is a nonsmoker. I had seen her initially on 02/18/2019. She was agrreable to adjuvant hormonal therapy with an aromatase inhibitor. She opted not to take radiation. Her baseline Dexa scan showed osteopenia with T score -1.7 in the lumbar spine, -1.6 in the left hip, and -1.7 in the right hip. She began treatment with anastrozole 1 mg daily on 03/23/2019. She had stopped it somewhere around the beginning of September due to swelling in her legs and feet. I had seen her for a follow-up visit on 11/04/2019. At that point her blood pressure was still elevated, and I had her start triamterene/HCTZ for her hypertension and swelling. However, within a month it had to be stopped due to development of a hypersensitivity skin eruption. She was then started on amlodipine 5 mg daily, which had to be stopped because of swelling. As of 01/27/2020 her blood pressure medication was changed to metoprolol 25 mg twice daily. She tolerated it well and has of her follow-up visit on 02/23/2020 she began adjuvant hormonal therapy with exemestane 25 mg daily. She had stopped the exemestane within a short time due to recurrence of her skin eruption, but that appeared to have been related to her pharmacy having inadvertently refilled her amlodipine prescription rather than metoprolol. At her follow-up visit on 04/06/2020 she restarted the metoprolol and I also gave her doxycycline for the skin eruption. The exemestane remained on hold. She is seen for a follow-up visit. Her skin eruption has improved significantly, though it is not completely resolved. Her blood pressure still a little elevated. Her energy is somewhat variable, but she has normal activity. Her appetite is good. She has not had fever or night sweats. She has hot flashes, that has been going on for years. She does not complain of shortness of breath, cough, or chest pain. She has no GI or complaints. She says her toes hurt in cold weather. She has no other joint or bone pain. She has occasional episodes of dizziness. She has no focal neurologic symptoms. Medications: Doxycycline 1 Capsule (of 40 mg) Capsule Delayed Release Oral b.i.d., Glucosamine HCl 1 Tablet (of 1000 mg) Oral daily, healthy feet and nerve 1 Capsule daily, Metoprolol Succinate ER 1 Tablet (of 25 mg) Tablet SR 24 HR Oral daily, Triamterene-HCTZ 1 Capsule (of 37.5-25 mg) Oral daily Allergies: amLODIPine Besylate and sulfa. Review of Systems: Constitutional - Energy is variable, but she has normal activity. Appetite is good and weight is stable. No fever or night sweats. She has hot flashes. ECOG score is 0, ENMT - She has allergy related sinus symptoms. No mouth sores. No sore throat or difficulty swallowing, Hematologic/Lymphatic - No abnormal bruising or bleeding, Respiratory - No shortness of breath. No cough. No pleuritic pain or hemoptysis, Cardiovascular - No angina pain. No palpitations, Gastrointestinal - No nausea or vomiting. No heartburn or acid reflux. No diarrhea or constipation. No blood in the stool or black stools, Genitourinary (F) - No dysuria or hematuria. No urinary frequency. No urgency or incontinence, Musculoskeletal - Her toes hurting cold weather. She has no other joint or bone pain, Integumentary - Her skin rash has improved significantly, Neurologic - No headache or dizziness. No numbness or tingling. No other focal neurologic symptoms, Psychiatric - She has anxiety. No insomnia. Vital Signs: Performed on May 03, 2020 12:59 Height - 65.50 in Weight - 159.4 lbs (HIGH) BSA - 1.81 sq.m BMI - 26.12 Temperature - 98.6 F Pulse - 67 /min Respiration - 18 /min BP - 172/70 mm(hg) (HIGH) O2 Sat - 99 % Pain - 0 Physical Examination: Constitutional - She looks good generally, Eyes - Sclerae nonicteric. Conjunctivae clear, ENMT - No lesions noted in the oral cavity, Hematologic/Lymphatic - No cervical, clavicular, or axillary adenopathy, Respiratory - Lungs are clear with good air movement bilaterally, Cardiovascular - Heart rhythm is regular. There is no murmur, gallop, or rub noted, Abdomen - Soft. Liver and spleen are not enlarged. There is no abdominal mass or ascites noted and there is no inguinal adenopathy, Extremities - No edema, Integumentary - There are just a few, small residual skin lesions in the face/neck area, Neurologic - No focal neurologic deficits noted. Impression: 1. Patient with grade 2 infiltrating ductal carcinoma of the right breast, stage IIA ( T2, N0, M0), ER/ME positive and HER-2/andrew negative. 2. She underwent lumpectomy with axillary sentinel lymph node biopsy on 02/04/2019. Her other medical illnesses include: 3. Hyperlipidemia, not requiring medication. 4. Degenerative arthritis. 5. Benign positional vertigo. She was agreeable to take adjuvant hormonal therapy, but she opted to not undergo radiation. On 03/23/2019 she began treatment with anastrozole 1 mg daily. Her baseline DEXA scan did show evidence of osteopenia with T score -1.7 in the lumbar spine, -1.6 in the left hip, and -1.7 in the right hip. She had initially been tolerating the anastrozole with no adverse effects other than her blood pressure had become mildly elevated. Sometime around the end of September she had stopped the anastrozole due to swelling in her legs and feet. The swelling had then improved somewhat, but her blood pressure remained elevated. Following her visit in October 2019 she had started triamterene/HCTZ, but that had to be stopped because of a hypersenstivity skin eruption. She was then started on amlodipine, which also caused swelling. As of 01/27/2020 her blood pressure medication was changed to metoprolol 25 mg twice daily. She tolerated it well and as of 02/23/2020 she began adjuvant hormonal therapy with exemestane 25 mg daily. She had stopped it again within a coupe of weeks ago due to recurrence of a skin eruption on her face and neck, but that apparently was due to her pharmacy having refilled her amlodipine instead of metoprolol. She has since then restarted the metoprolol for her hypertension, I did have to give her doxycycline for the skin eruption. It has improved significantly, but not completely resolved. Plan: She will restart exemestane 25 mg daily. She will continue metoprolol 25 mg twice daily. I would keep her on doxycycline 100 mg daily for another month. If she has any further problems with the skin eruption, I will have her see a day care aide. She will be scheduled for a follow-up visit here in 1 month. Signed By: Eliecer Kearney M.D. <<Signature on File>>
== END 2020-05-03 12:46 | disposition home or self-care (01) ==
LOC: ONCMED 12:48
PROVIDERS: PCP Family Medicine; Visit Provider Internal Medicine Medical Oncology
DX: C50.411 Malignant neoplasm of upper-outer quadrant of right female breast (principal); Z17.0 Estrogen receptor positive status [ER+]; L27.0 Generalized skin eruption due to drugs and medicaments taken internally; T45.1X5D Adverse effect of antineoplastic and immunosuppressive drugs, subsequent encounter; E78.5 Hyperlipidemia, unspecified; M19.90 Unspecified osteoarthritis, unspecified site; H81.10 Benign paroxysmal vertigo, unspecified ear; M85.88 Other specified disorders of bone density and structure, other site; Z79.2 Long term (current) use of antibiotics; Z79.811 Long term (current) use of aromatase inhibitors; Z79.899 Other long term (current) drug therapy
CPT/HCPCS: 99214

== ENCOUNTER 2020-06-01 10:03 | Outpatient (CLI) | payer MEDICARE, OTHER, SELFPAY ==
--- NOTE | 2020-06-05 17:03 | ONC FU_ITS ---
[facility] Patient Note Patient: Anastasiia Lopez Unit #: [id number]: 1935 Dictated By: Letty KamaraDate of Visit: Jun 01, 2020 Onc MED Follow-Up/Prog Note Chief Complaint: Breast cancer. History of Present Illness: Ms Lopez is an 84 year-old woman grade 2 infiltrating ductal carcinoma of the right breast, stage IIA (T2, N0, M0), ER/MO positive and HER-2/andrew negative. She had presented with a palpable lump in her right breast. Bilateral diagnostic mammogram and bilateral breast ultrasound on 12/18/2018 was BI-RADS Category 5, highly suggestive of malignancy. Findings included a high density spiculated soft tissue mass in the upper outer quadrant of the right breast at the 10:00 position. It measured 2.2 cm in diameter. There was architectural distortion extending anteriorly, posteriorly, and inferiorly from the mass lesion. Ultrasound showed a mass lesion of mixed decreased echotexture with posterior acoustic shadowing and irregular margins measuring 1.9 x 2.1 x 2.3 cm. Ultrasound-guided biopsy the right breast mass on 12/29/2018 showed grade 2 infiltrating ductal carcinoma. Breast prognostic profile ER positive at 99% and MO positive at 94%, both with strong intensity. The tumor was negative for overexpression of HER-2/andrew, 2+ by IHC and amplification ratio by FISH of 1.0 with 2.4 HER2 copies/cell. The Ki-67 was intermediate at 19%. Dr Kearney had seen her initially on 01/13/2019. Her her preliminary indication was that she did not want to pursue any further treatment for the breast cancer. However, after discussing it with her, she did agree to proceed with lumpectomy and axillary sentinel lymph node biopsy. The procedure was performed on 02/04/2019. Pathology showed grade 2 invasive ductal carcinoma measuring 2.4 cm in greatest dimension. The margins were not involved, the closest being the deep posterior margin measured at 0.4 cm. 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 There was no involvement in 1 axillary sentinel lymph node. She has been in good general health. Her other medical illnesses have been limited to degenerative arthritis and benign positional vertigo. She also has hyperlipidemia, but not requiring medication. She is a nonsmoker. Dr Kearney had seen her initially on 02/18/2019. She was agreeable to adjuvant hormonal therapy with an aromatase inhibitor. She opted not to take radiation. Her baseline Dexa scan showed osteopenia with T score -1.7 in the lumbar spine, -1.6 in the left hip, and -1.7 in the right hip. She began treatment with anastrozole 1 mg daily on 03/23/2019. She had stopped it somewhere around the beginning of September due to swelling in her legs and feet. I had seen her for a follow-up visit on 11/04/2019. At that point her blood pressure was still elevated, and I had her start triamterene/HCTZ for her hypertension and swelling. However, within a month it had to be stopped due to development of a hypersensitivity skin eruption. She was then started on amlodipine 5 mg daily, which had to be stopped because of swelling. As of 01/27/2020 her blood pressure medication was changed to metoprolol 25 mg twice daily. She tolerated it well and has of her follow-up visit on 02/23/2020 she began adjuvant hormonal therapy with exemestane 25 mg daily. She had stopped the exemestane within a short time due to recurrence of her skin eruption, but that appeared to have been related to her pharmacy having inadvertently refilled her amlodipine prescription rather than metoprolol. At her follow-up visit on 04/06/2020 she restarted the metoprolol and Dr Kearney also gave her doxycycline for the skin eruption. The exemestane remained on hold. Ms. Lopez is here today for follow-up. She denies any new concerns. She has continued on that purple 25 mg twice daily and states that her blood pressures are running 120/80 at home. She has completed the doxycycline as of today and the rash has completely resolved. She did restart the exemestane and states she is tolerating that well. She has no new concerns today. 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 She denies any pain. She is had no shortness of breath orthopnea. She denies chest pain or palpitations. She denies any muscle pain. She states her appetite is good. She states overall she is feeling well. Her ECOG is 0. Past Medical History: Benign paroxysmal positional vertigo Hyperlipidemia Osteoarthritis Past Surgical History: Ultrasound-guided needle biopsy of the right breast in 2019 Cataract surgery in 2011 Colonoscopy in 2009 Right inguinal hernia repair in 1969 Allergies: amLODIPine Besylate and sulfa. Medications: Doxycycline 1 Capsule (of 40 mg) Capsule Delayed Release Oral b.i.d. Glucosamine HCl 1 Tablet (of 1000 mg) Oral daily healthy feet and nerve 1 Capsule daily Metoprolol Succinate ER 1 Tablet (of 25 mg) Tablet SR 24 HR Oral daily Triamterene-HCTZ 1 Capsule (of 37.5-25 mg) Oral daily Family History: Ms. Lopez's mother at age 90: stroke. Ms. Lopez's father at age 93: old age, and stroke. Ms. Lopez has 1 son who is : brain cancer, and aids. Father at age 93 due to stroke complicating surgery for cardiac aneurysm. Mother of stroke at age 90. She has no siblings. Son at age 41 of HIV related brain cancer. Social History: Ms. Lopez is and she is retired. Ms. Lopez has never smoked. She is an active drinker. She is a nonsmoker. She has occasional alcohol use, limited to 3-4 oz of cam 3 to 4 times out of the year. Review Of Symptoms: Constitutional Denies fevers, chills, night sweats, excessive fatigue or weight loss. 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 Allergic/Immunologic No reactions. ENMT Denies changes in hearing, sore throat, mouth sores, difficulty or changes in swallowing ability, and/or sinus drainage. Endocrine No diabetes, thyroid disease or hormone replacement. Denies hot flashes or night sweats. Hematologic/Lymphatic Denies easy bruising or bleeding. The patient denies any tender or palpable lymph nodes. Respiratory Denies dyspnea on exertion, chest pain, cough or hemoptysis. Denies orthopnea. Cardiovascular Denies anginal chest pain, palpitations or orthopnea. Gastrointestinal Denies nausea, vomiting, diarrhea, GI bleeding, or constipation. Denies change in bowel habits and/or stool color, no heartburn or early satiety. Genitourinary (F) No hematuria, hesitancy, incontinence, vaginal bleeding, discharge or other problems with urination. Musculoskeletal Denies joint pain, swelling or redness. No decreased range of motion. Integumentary Denies chronic rashes, inflammation, ulcerations or skin changes. Neurologic Denies headache, blurred vision, and no areas of focal weakness or numbness. Normal gait. No sensory problems. Psychiatric Denies insomnia, depression, lg or mood swings. Vital Signs: Performed on Jun 01, 2020 10:28 Height - 65.50 in Weight - 159.4 lbs BSA - 1.81 sq.m BMI - 26.12 Temperature - 98.6 F Pulse - 60 /min Respiration - 18 /min BP - 140/82 mm(hg) O2 Sat - 95 % (LOW) Pain - 0,0 - Fully active, able to carry on all predisease activities without restrictions. (ECOG) Physical Examination: Constitutional Alert, oriented, no acute distress. Skin pink, warm and dry. Head Normocephalic; atraumatic. Eyes Conjunctivae and sclerae are clear and without icterus. Pupils are reactive and equal. Neck Supple without masses or thyromegaly. No jugular venous distension. Hematologic/Lymphatic No petechiae or purpura. No tender or palpable lymph nodes in the cervical or supraclavicular areas. Respiratory Lungs are clear to auscultation without rhonchi or wheezing. Cardiovascular Regular rate and rhythm of heart without murmurs,clicks, gallops or rubs. Abdomen Non-tender, non-distended, no masses or ascites. Good bowel sounds noted in all quads. No guarding or rebound tenderness. No pulsatile masses. Back/Spine Non-tender to palpation. Extremities No visible deformities, no cyanosis, clubbing or edema. Musculoskeletal No tenderness or swelling, normal range of motion without obvious weakness. Integumentary No rashes or lesions. Neurologic No sensory or motor deficits, normal cerebellar function, normal gait. Psychiatric Alert and oriented times three. Coherent speech. Verbalizes understanding of our discussions today. Laboratory:Test performed on Dec 10, 2019 10:40 Sodium 137 mmol/L Potassium 3.9 mmol/L Chloride 96 mmol/L CO2 30 mmol/L Anion Gap 14.9 BUN 14 mg/dL Creatinine 0.8 mg/dL Cr Clearance (Est) 59.9000 mL/min Glucose 96 mg/dL Calcium 10.0 mg/dL Protein, Total 6.6 g/dL Albumin 4.2 g/dL Globulin 2.4 g/dL Bilirubin, Total 0.8 mg/dL ALT (SGPT) 13 U/L AST (SGOT) 19 U/L Alkaline Phosphatase 63 IU/L WBC 6.0 10 3/uL RBC 4.66 10 6/uL HGB 14.5 g/dL HCT 44.8 % MCV 96.1 fL MCH 31.1 pg MCHC 32.4 g/dL RDW 12.9 % Platelet Count 205 10 3/cmm MPV 9.6 fL Neutrophils 3.1 10 3/uL Lymphocytes 2.4 10 3/uL Monocytes 0.5 10 3/uL Eosinophils 0.1 10 3/uL Basophils 0.0 10 3/uL Neutrophil % 50.6 % Lymphocyte % 39.1 % Monocyte % 7.8 % Eosinophil % 1.5 % Basophils % 0.7 % NRBC % 0 % Impression: 1. Patient with grade 2 infiltrating ductal carcinoma of the right breast, stage IIA ( T2, N0, M0), ER/MO positive and HER-2/andrew negative. 2. She underwent lumpectomy with axillary sentinel lymph node biopsy on 02/04/2019. Her other medical illnesses include: 3. Hyperlipidemia, not requiring medication. 4. Degenerative arthritis. 5. Benign positional vertigo. She was agreeable to take adjuvant hormonal therapy, but she opted to not undergo radiation. On 03/23/2019 she began treatment with anastrozole 1 mg daily. Her baseline DEXA scan did show evidence of osteopenia with T score -1.7 in the lumbar spine, -1.6 in the left hip, and -1.7 in the right hip. She had initially been tolerating the anastrozole with no adverse effects other than her blood pressure had become mildly elevated. Sometime around the end of September she had stopped the anastrozole due to swelling in her legs and feet. The swelling had then improved somewhat, but her blood pressure remained elevated. Following her visit in October 2019 she had started triamterene/HCTZ, but that had to be stopped because of a hypersenstivity skin eruption. She was then started on amlodipine, which also caused swelling. As of 01/27/2020 her blood pressure medication was changed to metoprolol 25 mg twice daily. She tolerated it well and as of 02/23/2020 she began adjuvant hormonal therapy with exemestane 25 mg daily. She had stopped it again within a coupe of weeks ago due to recurrence of a skin eruption on her face and neck, but that apparently was due to her pharmacy having refilled her amlodipine instead of metoprolol. She has since then restarted the metoprolol for her hypertension, Dr Kearney did have to give her doxycycline for the skin eruption. It has completely resolved at today's visit. Plan: 1. Continue exemestane 25 mg daily. 2. continue metoprolol 25 mg twice daily. 3. She completes the 100 mg daily of doxycycline. Her rash is resolved. She does have refills of the doxycycline in the event that the rash should return. If she has any further problems with the skin eruption Dr. Kearney has recommended she see dermatology. 4. We will plan to see her back here in 2 months with [facility]. She will contact us in interim should questions or problems arise. Signed By: Letty Kamara-, CNP Eliecer Kearney MD <<Signature on File>>
== END 2020-06-01 10:04 | disposition home or self-care (01) ==
LOC: ONCMED 10:06
PROVIDERS: PCP Family Medicine; Visit Provider Nurse Practitioner
DX: C50.411 Malignant neoplasm of upper-outer quadrant of right female breast (principal); Z17.0 Estrogen receptor positive status [ER+]; E78.5 Hyperlipidemia, unspecified; M19.90 Unspecified osteoarthritis, unspecified site; H81.13 Benign paroxysmal vertigo, bilateral; Z79.818 Long term (current) use of other agents affecting estrogen receptors and estrogen levels; Z79.52 Long term (current) use of systemic steroids; Z79.2 Long term (current) use of antibiotics
CPT/HCPCS: 99214

== ENCOUNTER 2020-08-25 10:19 | Outpatient (CLI) | payer MEDICARE, OTHER, SELFPAY ==
[2020-08-25 10:58] LABS: Basophils % 0.7 %; Eosinophils # 0.1 10^3/uL (0.0-0.8); Eosinophils % 1.7 %; Hemoglobin 13.5 g/dL (11.5-15.3); Lymphocytes # 2.2 10^3/uL (0.8-4.8); Lymphocytes % 37.8 %; Mean Corpuscular HGB Conc 32.1 g/dL (30.0-36.0); Mean Corpuscular Hemoglobin 31.3 pg (28.0-34.0); Mean Corpuscular Volume 97.4 fL (81-99); Mean Platelet Volume 9.7 fL (7.4-10.4); Monocytes # 0.5 10^3/uL (0.2-0.9); Monocytes % 8.8 %; Neutrophils # 2.93 10^3/uL (1.8-7.7); Neutrophils % 50.8 %; Nucleated Red Blood Cells % 0 %; Platelet Count 194 10^3/cmm (130-400); Red Blood Count 4.31 10^6/uL (4.1-5.3); Red Cell Distribution Width 13.3 % (12.1-15.1); White Blood Count 5.8 10^3/uL (4.0-10.0)
[2020-08-25 11:14] LABS: Alanine Aminotransferase 12 U/L (0-33); Albumin Level 3.9 g/dL (3.5-5.2); Alkaline Phosphatase 75 IU/L (35-105); Anion Gap 11.3 (5-19); Aspartate Amino Transferase 16 U/L (0-32); Blood Urea Nitrogen 11 mg/dL (8-23); Calcium 9.3 mg/dL (8.5-10.5); Carbon Dioxide 30 mmol/L (22-29); Chloride 100 mmol/L (98-107); Globulin 2.4 g/dL (1.3-4.6); Glucose 99 mg/dL (65-115); Osmolality Calculated 283 mOsm/kg (285-295); Potassium 4.3 mmol/L (3.5-5.1); Sodium 137 mmol/L (136-145); Total Bilirubin 1.1 mg/dL (0.15-1.2); Total Protein 6.3 g/dL (6.6-8.7)
== END 2020-08-25 10:20 | disposition home or self-care (01) ==
LOC: ONCMED 10:22
PROVIDERS: PCP Family Medicine; Visit Provider Internal Medicine Medical Oncology
DX: C50.411 Malignant neoplasm of upper-outer quadrant of right female breast (principal); Z17.0 Estrogen receptor positive status [ER+]
CPT/HCPCS: 36415; 80053; 85025

== ENCOUNTER 2020-08-28 06:02 | Outpatient (CLI) | payer MEDICARE, OTHER, SELFPAY ==
--- NOTE | 2020-08-29 20:37 | ONC FU_ITS ---
Dr. Kearney Patient Follow-Up Note Patient: Anastasiia Lopez Unit #: [id number]: 1935 Dicatated By: Eliecer Kearney M.D.Date of Visit:Aug 28, 2020 Onc Med Follow-up/Prog Note Chief Complaint: Breast cancer. History of Present Illness: This is an 84 year-old woman grade 2 infiltrating ductal carcinoma of the right breast, stage IIA (T2, N0, M0), ER/WA positive and HER-2/andrew negative. She had presented with a palpable lump in her right breast. Bilateral diagnostic mammogram and bilateral breast ultrasound on 12/18/2018 was BI-RADS Category 5, highly suggestive of malignancy. Findings included a high density spiculated soft tissue mass in the upper outer quadrant of the right breast at the 10:00 position. It measured 2.2 cm in diameter. There was architectural distortion extending anteriorly, posteriorly, and inferiorly from the mass lesion. Ultrasound showed a mass lesion of mixed decreased echotexture with posterior acoustic shadowing and irregular margins measuring 1.9 x 2.1 x 2.3 cm. Ultrasound-guided biopsy the right breast mass on 12/29/2018 showed grade 2 infiltrating ductal carcinoma. Breast prognostic profile ER positive at 99% and WA positive at 94%, both with strong intensity. The tumor was negative for overexpression of HER-2/andrew, 2+ by IHC and amplification ratio by FISH of 1.0 with 2.4 HER2 copies/cell. The Ki-67 was intermediate at 19%. I had seen her initially on 01/13/2019. Her her preliminary indication was that she did not want to pursue any further treatment for the breast cancer. However, after discussing it with her, she did agree to proceed with lumpectomy and axillary sentinel lymph node biopsy. The procedure was performed on 02/04/2019. Pathology showed grade 2 invasive ductal carcinoma measuring 2.4 cm in greatest dimension. The margins were not involved, the closest being the deep posterior margin measured at 0.4 cm. 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 There was no involvement in 1 axillary sentinel lymph node. I had seen her initially on 02/18/2019. She was agrreable to adjuvant hormonal therapy with an aromatase inhibitor. She opted not to take radiation. Her baseline Dexa scan showed osteopenia with T score -1.7 in the lumbar spine, -1.6 in the left hip, and -1.7 in the right hip. She began treatment with anastrozole 1 mg daily on 03/23/2019. She had stopped it somewhere around the beginning of September due to swelling in her legs and feet. I had seen her for a follow-up visit on 11/04/2019. At that point her blood pressure was still elevated, and I had her start triamterene/HCTZ for her hypertension and swelling. However, within a month it had to be stopped due to development of a hypersensitivity skin eruption. She was then started on amlodipine 5 mg daily, which had to be stopped because of swelling. As of 01/27/2020 her blood pressure medication was changed to metoprolol 25 mg twice daily. She tolerated it well and as of her follow-up visit on 02/23/2020 she began adjuvant hormonal therapy with exemestane 25 mg daily. She had stopped the exemestane within a short time due to recurrence of her skin eruption, but that appeared to have been related to her pharmacy having inadvertently refilled her amlodipine prescription rather than metoprolol. At her follow-up visit on 04/06/2020 she restarted the metoprolol and I also gave her doxycycline for the skin eruption. The exemestane remained on hold. As of her follow-up visit in April 2020 the skin eruption had continued to improve and she then restarted the exemestane at 25 mg daily. Initially she was tolerating it well. However, on 07/06/2019 she called and reported having developed generalized pain, severe fatigue, and depression. The exemestane was again put on hold. She has been in good general health. Her other medical illnesses inclued hypertension, hyperlipidemia, degenerative arthritis, and benign positional vertigo. She is a nonsmoker. She has seen for a scheduled follow-up visit. She has been feeling much better since she has been off the exemestane. Her energy has improved and her activity tolerance is back to normal. ECOG score is 0. She has good appetite. She is not having fever, night sweats, or hot flashes. She has no shortness of breath, cough, or chest pain. She has no GI or complaints. She currently is not having any significant joint or bone pain. She has no focal neurologic symptoms. Medications: Doxycycline 1 Capsule (of 40 mg) Capsule Delayed Release Oral b.i.d., Glucosamine HCl 1 Tablet (of 1000 mg) Oral daily, healthy feet and nerve 1 Capsule daily, Metoprolol Succinate ER 1 Tablet (of 25 mg) Tablet SR 24 HR Oral daily, Triamterene-HCTZ 1 Capsule (of 37.5-25 mg) Oral daily Allergies: amLODIPine Besylate and sulfa. Vital Signs: Performed on Aug 28, 2020 11:26 Height - 65.50 in Weight - 156.8 lbs (LOW) BSA - 1.79 sq.m BMI - 25.70 Temperature - 97.3 F (LOW) Pulse - 70 /min Respiration - 18 /min BP - 177/91 mm(hg) (HIGH) O2 Sat - 94 % (LOW) Pain - 0 Fatigue - 0 Physical Examination: Constitutional - She looks good generally, Eyes - Sclerae nonicteric. Conjunctivae clear, ENMT - No lesions noted in the oral cavity, Hematologic/Lymphatic - No cervical, clavicular, or axillary adenopathy, Respiratory - Lungs are clear with good air movement bilaterally, Cardiovascular - Heart rhythm is regular. There is no murmur, gallop, or rub noted, Abdomen - Soft. Liver and spleen are not enlarged. There is no abdominal mass or ascites noted and there is no inguinal adenopathy, Extremities - No edema, Integumentary - There is currently no skin eruption, Neurologic - No focal neurologic deficits noted. Lab/Imaging: Test performed on Aug 25, 2020 10:28 Sodium 137 mmol/L Potassium 4.3 mmol/L Chloride 100 mmol/L CO2 30 mmol/L Anion Gap 11.3 BUN 11 mg/dL Creatinine 0.7 mg/dL Cr Clearance (Est) 69.5100 mL/min Glucose 99 mg/dL Osmolality - Calculated 283 mOsm/kg Calcium 9.3 mg/dL Protein, Total 6.3 g/dL Albumin 3.9 g/dL Globulin 2.4 g/dL Bilirubin, Total 1.1 mg/dL ALT (SGPT) 12 U/L AST (SGOT) 16 U/L Alkaline Phosphatase 75 IU/L WBC 5.8 10 3/uL RBC 4.31 10 6/uL HGB 13.5 g/dL HCT 42.0 % MCV 97.4 fL MCH 31.3 pg MCHC 32.1 g/dL RDW 13.3 % Platelet Count 194 10 3/cmm MPV 9.7 fL Neutrophils 2.93 10 3/uL Lymphocytes 2.2 10 3/uL Monocytes 0.5 10 3/uL Eosinophils 0.1 10 3/uL Basophils 0.0 10 3/uL Neutrophil % 50.8 % Lymphocyte % 37.8 % Monocyte % 8.8 % Eosinophil % 1.7 % Basophils % 0.7 % NRBC % 0 % Problem List: 1. Grade 2 infiltrating ductal carcinoma of the right breast, stage IIA ( T2, N0, M0), ER/WA positive and HER-2/andrew negative. 2. Hypertension. 3. Hyperlipidemia, not requiring medication. 4. Degenerative arthritis. 5. Benign positional vertigo. 6. Her baseline DEXA scan showed evidence of osteopenia with T score -1.7 in the lumbar spine, -1.6 in the left hip, and -1.7 in the right hip. Problems Addressed with this Encounter and Plan: Patient with grade 2 infiltrating ductal carcinoma of the right breast, stage IIA ( T2, N0, M0), ER/WA positive and HER-2/andrew negative. She underwent lumpectomy with axillary sentinel lymph node biopsy on 02/04/2019. She opted to not undergo radiation. On 03/23/2019 she began adjuvant hormonal therapy with anastrozole 1 mg daily. She had initially been tolerating the anastrozole with no adverse effects other than her blood pressure had become mildly elevated. Sometime around the end of September 2019 she had stopped the anastrozole due to swelling in her legs and feet. Her further clinical course was complicated by persistent hypertension, but it eventually was managed adequately with metoprolol. As of 02/23/2020 she began adjuvant hormonal therapy with exemestane 25 mg daily. She had stopped it again within a couple of weeks due to recurrence of a skin eruption on her face and neck, but that apparently was due to her pharmacy having refilled her amlodipine instead of metoprolol. In April 2020 she was able to restart exemestane 25 mg daily. Initially she tolerated well. However as of 07/06/2020 it had to be stopped due to development of severe generalized musculoskeletal pain, fatigue, and depression. She has since then been feeling better. I discussed the possibility of continuing further adjuvant hormonal therapy with tamoxifen. After reviewing side effects, which include risk of thromboembolism and a very small risk of endometrial cancer, she opts not to have any further treatment. As such, she will be followed expectantly. I will see her again in 6 months. Signed By: Eliecer Kearney M.D. <<Signature on File>>
== END 2020-08-28 06:03 | disposition home or self-care (01) ==
LOC: ONCMED 06:04
PROVIDERS: PCP Family Medicine; Visit Provider Internal Medicine Medical Oncology
DX: C50.811 Malignant neoplasm of overlapping sites of right female breast (principal); Z17.0 Estrogen receptor positive status [ER+]; I10 Essential (primary) hypertension; E78.5 Hyperlipidemia, unspecified; M19.90 Unspecified osteoarthritis, unspecified site; H81.13 Benign paroxysmal vertigo, bilateral; M85.80 Other specified disorders of bone density and structure, unspecified site; Z78.0 Asymptomatic menopausal state; Z79.811 Long term (current) use of aromatase inhibitors
CPT/HCPCS: 99214

== ENCOUNTER 2021-01-01 10:33 | Outpatient (CLI) | payer MEDICARE, OTHER, SELFPAY ==
--- NOTE | 2021-01-01 10:44 | MM_ITS ---
WS: [id number] SCREENING DIGITAL MAMMOGRAM WITH CAD HISTORY: HX OF BREAST CA COMPARISON: 12/22/2019, 12/18/2018 Bilateral CC and MLO views submitted. Computer aided detection analyzed. Breast composition: There are scattered areas of fibroglandular density. Postsurgical changes and lum pectomy noted within the RIGHT breast. In the resection site is a new 6 mm nodule which was not prese nt on the prior examination in the anterior breast. Further evaluation is necessary. No change in the LEFT breast. Vascular calcifications. MM/[place] [id number] IMPRESSION: BI-RADS: 0-Incomplete: Need additional imaging evaluation FOLLOW UP: Need Additional Imaging RIGHT breast: Spot compression views (CC and MLO). True ML. Ultrasound to follo w if abnormality persists.
[2021-01-01 11:03] LABS: Basophils # 0.1 10^3/uL (0.0-0.1); Eosinophils # 0.2 10^3/uL (0.0-0.8); Eosinophils % 2.8 %; Hematocrit 43.6 % (37.0-47.0); Hemoglobin 13.9 g/dL (11.5-15.3); Lymphocytes # 2.3 10^3/uL (0.8-4.8); Lymphocytes % 37.7 %; Mean Corpuscular HGB Conc 31.9 g/dL (30.0-36.0); Mean Corpuscular Hemoglobin 31.2 pg (28.0-34.0); Mean Platelet Volume 9.6 fL (7.4-10.4); Monocytes # 0.5 10^3/uL (0.2-0.9); Monocytes % 7.7 %; Neutrophils # 3.07 10^3/uL (1.8-7.7); Neutrophils % 50.3 %; Nucleated Red Blood Cells % 0 %; Platelet Count 181 10^3/cmm (130-400); Red Blood Count 4.45 10^6/uL (4.1-5.3); Red Cell Distribution Width 13.1 % (12.1-15.1); White Blood Count 6.1 10^3/uL (4.0-10.0)
[2021-01-01 11:26] LABS: Alanine Aminotransferase 11 U/L (0-33); Albumin Level 3.8 g/dL (3.5-5.2); Alkaline Phosphatase 73 IU/L (35-105); Anion Gap 11.5 (5-19); Aspartate Amino Transferase 16 U/L (0-32); Blood Urea Nitrogen 14 mg/dL (8-23); Calcium 8.9 mg/dL (8.5-10.5); Carbon Dioxide 30 mmol/L (22-29); Chloride 104 mmol/L (98-107); Globulin 2.3 g/dL (1.3-4.6); Glucose 110 mg/dL (65-115); Osmolality Calculated 293 mOsm/kg (285-295); Potassium 4.5 mmol/L (3.5-5.1); Sodium 141 mmol/L (136-145); Total Protein 6.1 g/dL (6.6-8.7)
--- NOTE | 2021-01-03 06:19 | ONC FU_ITS ---
Dr. Kearney Patient Follow-Up Note Patient: Anastasiia Lopez Unit #: [id number]: 1935 Dicatated By: Eliecer Kearney M.D.Date of Visit:Jan 01, 2021 Onc Med Follow-up/Prog Note Chief Complaint: Breast cancer. History of Present Illness: This is an 85 year-old woman grade 2 infiltrating ductal carcinoma of the right breast, stage IIA (T2, N0, M0), ER/FL positive and HER-2/andrew negative. She had presented with a palpable lump in her right breast. Bilateral diagnostic mammogram and bilateral breast ultrasound on 12/18/2018 was BI-RADS Category 5, highly suggestive of malignancy. Findings included a high density spiculated soft tissue mass in the upper outer quadrant of the right breast at the 10:00 position. It measured 2.2 cm in diameter. There was architectural distortion extending anteriorly, posteriorly, and inferiorly from the mass lesion. Ultrasound showed a mass lesion of mixed decreased echotexture with posterior acoustic shadowing and irregular margins measuring 1.9 x 2.1 x 2.3 cm. Ultrasound-guided biopsy the right breast mass on 12/29/2018 showed grade 2 infiltrating ductal carcinoma. Breast prognostic profile ER positive at 99% and FL positive at 94%, both with strong intensity. The tumor was negative for overexpression of HER-2/andrew, 2+ by IHC and amplification ratio by FISH of 1.0 with 2.4 HER2 copies/cell. The Ki-67 was intermediate at 19%. I had seen her initially on 01/13/2019. Her her preliminary indication was that she did not want to pursue any further treatment for the breast cancer. However, after discussing it with her, she did agree to proceed with lumpectomy and axillary sentinel lymph node biopsy. The procedure was performed on 02/04/2019. Pathology showed grade 2 invasive ductal carcinoma measuring 2.4 cm in greatest dimension. The margins were not involved, the closest being the deep posterior margin measured at 0.4 cm. 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 There was no involvement in 1 axillary sentinel lymph node. I had seen her initially on 02/18/2019. She was agrreable to adjuvant hormonal therapy with an aromatase inhibitor. She opted not to take radiation. Her baseline Dexa scan showed osteopenia with T score -1.7 in the lumbar spine, -1.6 in the left hip, and -1.7 in the right hip. She began treatment with anastrozole 1 mg daily on 03/23/2019. She had stopped it somewhere around the beginning of September due to swelling in her legs and feet. I had seen her for a follow-up visit on 11/04/2019. At that point her blood pressure was still elevated, and I had her start triamterene/HCTZ for her hypertension and swelling. However, within a month it had to be stopped due to development of a hypersensitivity skin eruption. She was then started on amlodipine 5 mg daily, which had to be stopped because of swelling. As of 01/27/2020 her blood pressure medication was changed to metoprolol 25 mg twice daily. She tolerated it well and as of her follow-up visit on 02/23/2020 she began adjuvant hormonal therapy with exemestane 25 mg daily. She had stopped the exemestane within a short time due to recurrence of her skin eruption, but that appeared to have been related to her pharmacy having inadvertently refilled her amlodipine prescription rather than metoprolol. At her follow-up visit on 04/06/2020 she restarted the metoprolol and I also gave her doxycycline for the skin eruption. The exemestane remained on hold. As of her follow-up visit in April 2020 the skin eruption had continued to improve and she then restarted the exemestane at 25 mg daily. Initially she was tolerating it well. However, on 07/06/2019 she called and reported having developed generalized pain, severe fatigue, and depression. The exemestane was again put on hold. She was seen for a follow-up visit on 08/28/2020. She was feeling much better off the exemestane, and at that point it was pretty clear that she was not going to tolerate treatment with an aromatase inhibitor. I had talked her about the possibility of continuing adjuvant hormonal therapy with tamoxifen. After reviewing side effects with her, she opted not to have any further treatment. She has been in good general health. Her other medical illnesses inclued hypertension, hyperlipidemia, degenerative arthritis, and benign positional vertigo. She is a nonsmoker. She is seen for a follow-up visit. She has been feeling pretty good generally. She complains that she gets tired, but that she attributes to the hot weather. She still has normal activity. ECOG score is 0. She has normal appetite for summer. She has not had fever. She says she always has hot flashes. She has no shortness of breath, cough, or chest pain. She has no GI/ complaints other than occasional loose stools. She has normal arthritis . She does not complain of headache. She sometimes has dizziness, mainly if she gets too hot. She has some tingling in her toes. Medications: Doxycycline 1 Capsule (of 40 mg) Capsule Delayed Release Oral b.i.d., Glucosamine HCl 1 Tablet (of 1000 mg) Oral daily, healthy feet and nerve 1 Capsule daily, Metoprolol Succinate ER 1 Tablet (of 25 mg) Tablet SR 24 HR Oral daily, Triamterene-HCTZ 1 Capsule (of 37.5-25 mg) Oral daily Allergies: amLODIPine Besylate and sulfa. Vital Signs: Performed on Jan 01, 2021 15:46 Height - 65.50 in Weight - 156.0 lbs (LOW) BSA - 1.79 sq.m BMI - 25.57 Temperature - 98.5 F Pulse - 63 /min Respiration - 18 /min BP - 172/73 mm(hg) (HIGH) O2 Sat - 95 % (LOW) Pain - 0 Physical Examination: Constitutional - She looks good generally, Eyes - Sclerae nonicteric. Conjunctivae clear, ENMT - No lesions noted in the oral cavity, Hematologic/Lymphatic - No cervical, clavicular, or axillary adenopathy, Respiratory - Lungs are clear with good air movement bilaterally, Cardiovascular - Heart rhythm is regular. There is no murmur, gallop, or rub noted, Abdomen - Soft. Liver and spleen are not enlarged. There is no abdominal mass or ascites noted and there is no inguinal adenopathy, Extremities - Slgiht edema, Integumentary - No skin eruption, Neurologic - No focal neurologic deficits noted. Lab/Imaging: Test performed on Jan 01, 2021 10:49 Sodium 141 mmol/L Potassium 4.5 mmol/L Chloride 104 mmol/L CO2 30 mmol/L Anion Gap 11.5 BUN 14 mg/dL Creatinine 0.6 mg/dL Cr Clearance (Est) 77.97 mL/min Glucose 110 mg/dL Osmolality - Calculated 293 mOsm/kg Calcium 8.9 mg/dL Protein, Total 6.1 g/dL Albumin 3.8 g/dL Globulin 2.3 g/dL Bilirubin, Total 1.0 mg/dL ALT (SGPT) 11 U/L AST (SGOT) 16 U/L Alkaline Phosphatase 73 IU/L WBC 6.1 10 3/uL RBC 4.45 10 6/uL HGB 13.9 g/dL HCT 43.6 % MCV 98.0 fL MCH 31.2 pg MCHC 31.9 g/dL RDW 13.1 % Platelet Count 181 10 3/cmm MPV 9.6 fL Neutrophils 3.07 10 3/uL Lymphocytes 2.3 10 3/uL Monocytes 0.5 10 3/uL Eosinophils 0.2 10 3/uL Basophils 0.1 10 3/uL Neutrophil % 50.3 % Lymphocyte % 37.7 % Monocyte % 7.7 % Eosinophil % 2.8 % Basophils % 1.0 % NRBC % 0 % Problem List: 1. Grade 2 infiltrating ductal carcinoma of the right breast, stage IIA ( T2, N0, M0), ER/FL positive and HER-2/andrew negative. 2. Hypertension. 3. Hyperlipidemia, not requiring medication. 4. Degenerative arthritis. 5. Benign positional vertigo. 6. Her baseline DEXA scan showed evidence of osteopenia with T score -1.7 in the lumbar spine, -1.6 in the left hip, and -1.7 in the right hip. Problems Addressed with this Encounter and Plan: Patient with grade 2 infiltrating ductal carcinoma of the right breast, stage IIA ( T2, N0, M0), ER/FL positive and HER-2/andrew negative. She underwent lumpectomy with axillary sentinel lymph node biopsy on 02/04/2019. She opted to not undergo radiation. On 03/23/2019 she began adjuvant hormonal therapy with anastrozole 1 mg daily. She had initially been tolerating the anastrozole with no adverse effects other than her blood pressure had become mildly elevated. Sometime around the end of September 2019 she had stopped the anastrozole due to swelling in her legs and feet. Her further clinical course was complicated by persistent hypertension, but it eventually was managed adequately with metoprolol. As of 02/23/2020 she began adjuvant hormonal therapy with exemestane 25 mg daily. She had stopped it again within a couple of weeks due to recurrence of a skin eruption on her face and neck, but that apparently was due to her pharmacy having refilled her amlodipine instead of metoprolol. In April 2020 she was able to restart exemestane 25 mg daily. Initially she tolerated well. However as of 07/06/2020 it had to be stopped due to development of severe generalized musculoskeletal pain, fatigue, and depression. As of her follow-up visit on 08/28/2020 she was feeling much better. At that point she was given the option to continue adjuvant hormonal therapy with tamoxifen. After reviewing potential side effects with her, she opted not to have any further treatment. She is now being followed on expectant management. She appears to be doing well clinically. Her follow-up mammogram today was BI-RADS 0, and she will be scheduled for additional mammographic views. She will have further evaluation as indicated. I will tentatively plan a follow-up visit in 6 months. Signed By: Eliecer Kearney M.D. <<Signature on File>>
== END 2021-01-01 10:34 | disposition home or self-care (01) ==
LOC: ONCMED 10:43
PROVIDERS: PCP Family Medicine; Visit Provider Internal Medicine Medical Oncology
DX: Z08 Encounter for follow-up examination after completed treatment for malignant neoplasm (principal); Z85.3 Personal history of malignant neoplasm of breast; I10 Essential (primary) hypertension; E78.5 Hyperlipidemia, unspecified; M19.90 Unspecified osteoarthritis, unspecified site; H81.10 Benign paroxysmal vertigo, unspecified ear; Z79.899 Other long term (current) drug therapy
CPT/HCPCS: 36415; 77066; 80053; 85025; 99214

== ENCOUNTER 2021-01-18 13:55 | Outpatient (CLI) | payer MEDICARE, OTHER, SELFPAY ==
--- NOTE | 2021-01-18 14:06 | US_ITS ---
WS: [id number] ADDITIONAL VIEWS RIGHT BREAST RIGHT breast ultrasound, limited HISTORY: BREAST NODULE COMPARISON: 01/01/2021 and 12/22/2019 and 12/18/2018 Compression views right CC and MLO projection. True ML also submitted. Well-defined soft tissue mass measuring 6 mm in the anterior RIGHT breast. This mass is at the site o f the prior surgical resection at 1:00. RIGHT breast ultrasound, limited. Ultrasound at 1:00, 1 cm from the nipple demonstrates a hypoechoic, taller than wide mass with hyper echoic borders. This mass does not contain significant increased vascularity. Mass measures 7 x 6 x 7 mm. This does correspond to the mammographic abnormality. US/US breast RT limited* [id number] IMPRESSION: BI-RADS: 4-Suspicious Finding-Biopsy Should Be Considered FOLLOW-UP: Biopsy Recommended Ultrasound-guided biopsy recommended of the RIGHT breast mass at 1:00. Notified Tia Blackmon MD at 01/18/2021 3:48 PM.
== END 2021-01-18 13:56 | disposition home or self-care (01) ==
LOC: RADSHAW 14:04
PROVIDERS: PCP Family Medicine; Visit Provider Family Medicine
DX: N63.12 Unspecified lump in the right breast, upper inner quadrant (principal)
CPT/HCPCS: 76642; 77065

== ENCOUNTER 2021-02-06 11:40 | Outpatient (CLI) | payer MEDICARE, OTHER, SELFPAY ==
--- NOTE | 2021-02-06 | US_ITS ---
WS: [id number] ULTRASOUND-GUIDED RIGHT BREAST BIOPSY CLINICAL INFORMATION: BREAST MASS COMPARISON: None. FINDINGS: The procedure including risks, benefits, and complications were discussed with the patient who agreed to proceed. Using sterile technique patient was prepped and draped in the usual sterile fashion. Aft er 1% lidocaine utilizing real-time ultrasound guidance small amount of fluid was aspirated from the lesion. Subsequently 5 14-gauge cores were obtained of the right breast lesion at the 1 o'clock posit ion. Subsequently a titanium clip was placed in the biopsy cavity. No immediate complications. ASPIRATE DEMONSTRATES Moderate cellularity with atypical epithelial groups. Single individual atypical cells are visualized . Findings suspicious for malignancy and additional evaluation is recommended. PATHOLOGY DEMONSTRATES A. Breast, right breast mass , ultrasound-guided biopsy: -Invasive ductal carcinoma. -Gore Rosales grade 2 (score 7). -Breast prognostic profile has been performed and will be added as an addendum. US/[place] [id number] IMPRESSION: 1. Uncomplicated ultrasound-guided right breast biopsy. 2. The pathology demonstrates invasive ductal carcinoma. Breast cancer prognos tic profile pending. 3. Recommend breast surgery consultation in further evaluation. BI-RADS: 6-Known Biopsy-Proven Malignancy FOLLOW UP: Surgical Biopsy Recommended
--- NOTE | 2021-02-06 11:59 | US_ITS ---
WS: [id number] ULTRASOUND-GUIDED RIGHT BREAST BIOPSY CLINICAL INFORMATION: BREAST MASS COMPARISON: None. FINDINGS: The procedure including risks, benefits, and complications were discussed with the patient who agreed to proceed. Using sterile technique patient was prepped and draped in the usual sterile fashion. Aft er 1% lidocaine utilizing real-time ultrasound guidance small amount of fluid was aspirated from the lesion. Subsequently 5 14-gauge cores were obtained of the right breast lesion at the 1 o'clock posit ion. Subsequently a titanium clip was placed in the biopsy cavity. No immediate complications. ASPIRATE DEMONSTRATES Moderate cellularity with atypical epithelial groups. Single individual atypical cells are visualized . Findings suspicious for malignancy and additional evaluation is recommended. PATHOLOGY DEMONSTRATES A. Breast, right breast mass , ultrasound-guided biopsy: -Invasive ductal carcinoma. -Gore Rosales grade 2 (score 7). -Breast prognostic profile has been performed and will be added as an addendum. US/[place] [id number] IMPRESSION: 1. Uncomplicated ultrasound-guided right breast biopsy. 2. The pathology demonstrates invasive ductal carcinoma. Breast cancer prognos tic profile pending. 3. Recommend breast surgery consultation in further evaluation. BI-RADS: 6-Known Biopsy-Proven Malignancy FOLLOW UP: Surgical Biopsy Recommended
[2021-02-12 09:19] LABS: Miscellaneous Test See Scanned Lab Rpt
== END 2021-02-06 11:41 | disposition home or self-care (01) ==
PROVIDERS: PCP Family Medicine; Visit Provider Internal Medicine Medical Oncology
DX: N63.12 Unspecified lump in the right breast, upper inner quadrant
CPT/HCPCS: 19000; 19083; 76942; 88173; 88305; 88361; 88374

== ENCOUNTER 2021-02-13 09:58 | Outpatient (CLI) | payer MEDICARE, OTHER, SELFPAY ==
--- NOTE | 2021-02-13 16:11 | ONC FU_ITS ---
Dr. Kearney Patient Follow-Up Note Patient: Anastasiia Lopez Unit #: [id number]: 1935 Dicatated By: Eliecer Kearney M.D.Date of Visit:Feb 13, 2021 Onc Med Follow-up/Prog Note Chief Complaint: Breast cancer. History of Present Illness: This is an 85 year-old woman grade 2 infiltrating ductal carcinoma of the right breast, stage IA (T2, N0, M0), ER/OK positive and HER-2/andrew negative. She had presented with a palpable lump in her right breast. Bilateral diagnostic mammogram and bilateral breast ultrasound on 12/18/2018 was BI-RADS Category 5, highly suggestive of malignancy. Findings included a high density spiculated soft tissue mass in the upper outer quadrant of the right breast at the 10:00 position. It measured 2.2 cm in diameter. There was architectural distortion extending anteriorly, posteriorly, and inferiorly from the mass lesion. Ultrasound showed a mass lesion of mixed decreased echotexture with posterior acoustic shadowing and irregular margins measuring 1.9 x 2.1 x 2.3 cm. Ultrasound-guided biopsy the right breast mass on 12/29/2018 showed grade 2 infiltrating ductal carcinoma. Breast prognostic profile ER positive at 99% and OK positive at 94%, both with strong intensity. The tumor was negative for overexpression of HER-2/andrew, 2+ by IHC and amplification ratio by FISH of 1.0 with 2.4 HER2 copies/cell. The Ki-67 was intermediate at 19%. I had seen her initially on 01/13/2019. Her her preliminary indication was that she did not want to pursue any further treatment for the breast cancer. However, after discussing it with her, she did agree to proceed with lumpectomy and axillary sentinel lymph node biopsy. The procedure was performed on 02/04/2019. Pathology showed grade 2 invasive ductal carcinoma measuring 2.4 cm in greatest dimension. The margins were not involved, the closest being the deep posterior margin measured at 0.4 cm. 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 There was no involvement in 1 axillary sentinel lymph node. I had seen her initially on 02/18/2019. She was agrreable to adjuvant hormonal therapy with an aromatase inhibitor. She opted not to take radiation. Her baseline Dexa scan showed osteopenia with T score -1.7 in the lumbar spine, -1.6 in the left hip, and -1.7 in the right hip. She began treatment with anastrozole 1 mg daily on 03/23/2019. She had stopped it somewhere around the beginning of September due to swelling in her legs and feet. I had seen her for a follow-up visit on 11/04/2019. At that point her blood pressure was still elevated, and I had her start triamterene/HCTZ for her hypertension and swelling. However, within a month it had to be stopped due to development of a hypersensitivity skin eruption. She was then started on amlodipine 5 mg daily, which had to be stopped because of swelling. As of 01/27/2020 her blood pressure medication was changed to metoprolol 25 mg twice daily. She tolerated it well and as of her follow-up visit on 02/23/2020 she began adjuvant hormonal therapy with exemestane 25 mg daily. She had stopped the exemestane within a short time due to recurrence of her skin eruption, but that appeared to have been related to her pharmacy having inadvertently refilled her amlodipine prescription rather than metoprolol. At her follow-up visit on 04/06/2020 she restarted the metoprolol and I also gave her doxycycline for the skin eruption. The exemestane remained on hold. As of her follow-up visit in April 2020 the skin eruption had continued to improve and she then restarted the exemestane at 25 mg daily. Initially she was tolerating it well. However, on 07/06/2019 she called and reported having developed generalized pain, severe fatigue, and depression. The exemestane was again put on hold. She was seen for a follow-up visit on 08/28/2020. She was feeling much better off the exemestane, and at that point it was pretty clear that she was not going to tolerate treatment with an aromatase inhibitor. I had talked her about the possibility of continuing adjuvant hormonal therapy with tamoxifen. After reviewing side effects with her, she opted not to have any further treatment. She has been in good general health. Her other medical illnesses inclued hypertension, hyperlipidemia, degenerative arthritis, and benign positional vertigo. She is a nonsmoker. INTERIM HISTORY: Her surveillance diagnostic mammogram on 01/02/2021 was BI-RADS 0 with findings of a new 6 mm nodule at the lumpectomy site in the right breast. Additional mammographic views and right breast ultrasound on 01/18/2021 were BI-RADS 4, suspicious, with ultrasound showing a hyperechoic mass at the 1 o'clock position of the right breast 1 cm from the nipple. It measured 7 x 6 x 7 mm and was noted to correspond to the mammographic abnormality. Ultrasound directed biopsy of the mass on 02/06/2021 showed grade 2 invasive ductal carcinoma. The breast prognostic profile showed ER positive at 99% and OK positive at 99%. The tumor was negative for overexpression of HER-2/andrew, 2+ by IHC, but with amplification ratio by FISH of 1.0 with 2.6 HER-2 copies/cell. The Ki-67 was favorable at 8%. She is seen today for review of the biopsy results and to discuss further management of the breast cancer. Medications: Doxycycline 1 Capsule (of 40 mg) Capsule Delayed Release Oral b.i.d., Glucosamine HCl 1 Tablet (of 1000 mg) Oral daily, healthy feet and nerve 1 Capsule daily, Metoprolol Succinate ER 1 Tablet (of 25 mg) Tablet SR 24 HR Oral daily, Triamterene-HCTZ 1 Capsule (of 37.5-25 mg) Oral daily Allergies: amLODIPine Besylate and sulfa. Vital Signs: Performed on Feb 13, 2021 10:20 Height - 65.50 in Weight - 155.8 lbs (LOW) BSA - 1.79 sq.m BMI - 25.53 Temperature - 96.9 F (LOW) Pulse - 66 /min Respiration - 18 /min BP - 143/75 mm(hg) (HIGH) O2 Sat - 92 % (LOW) Pain - 0 Fatigue - 3 Problem List: 1. Grade 2 infiltrating ductal carcinoma of the right breast, ER/OK positive and HER-2/andrew negative. Her disease was stage IA ( T2, N0, M0) at initial diagnosis in December 2018. She now has evidence of recurrence at the lumpectomy site in the right breast. 2. Hypertension. 3. Hyperlipidemia, not requiring medication. 4. Degenerative arthritis. 5. Benign positional vertigo. 6. Her baseline DEXA scan showed evidence of osteopenia with T score -1.7 in the lumbar spine, -1.6 in the left hip, and -1.7 in the right hip. Problems Addressed with this Encounter and Plan: Patient with grade 2 infiltrating ductal carcinoma of the right breast, ER/OK positive and HER-2/andrew negative. She underwent lumpectomy with axillary sentinel lymph node biopsy on 02/04/2019. Her disease was stage IA ( T2, N0, M0) at initial diagnosis. She opted to not undergo radiation. On 03/23/2019 she began adjuvant hormonal therapy with anastrozole 1 mg daily. She had initially been tolerating the anastrozole with no adverse effects other than her blood pressure had become mildly elevated. Sometime around the end of September 2019 she had stopped the anastrozole due to swelling in her legs and feet. Her further clinical course was complicated by persistent hypertension, but it eventually was managed adequately with metoprolol. As of 02/23/2020 she began adjuvant hormonal therapy with exemestane 25 mg daily. She had stopped it again within a couple of weeks due to recurrence of a skin eruption on her face and neck, but that apparently was due to her pharmacy having refilled her amlodipine instead of metoprolol. In April 2020 she was able to restart exemestane 25 mg daily. Initially she tolerated well. However as of 07/06/2020 it had to be stopped due to development of severe generalized musculoskeletal pain, fatigue, and depression. As of her follow-up visit on 08/28/2020 she was feeling much better. At that point she was given the option to continue adjuvant hormonal therapy with tamoxifen. After reviewing potential side effects with her, she opted not to have any further treatment. She was then found to have new lesion at the lumpectomy site in the right breast on her diagnostic surveillance mammogram in December 2020. On her further mammographic views and right breast ultrasound the lesion appeared suspicious, and ultrasound directed biopsy on 02/06/2021 was positive for grade 2 invasive ductal carcinoma, ER/OK positive and HER-2 negative. The pathology results were reviewed with the patient and we discussed clinical complications and options for further management of the breast cancer. As she did not have any radiation with the initial management of her breast cancer, she would potentially still be eligible for a repeat lumpectomy procedure and breast radiation. The other option is to proceed with mastectomy. In the absence of any clinical evidence of involved axillary lymph nodes, I would be inclined to omit axillary lymph node sampling, as she is not motivated to have chemotherapy and it is unlikely to change her treatment. At some point I will need to readdress the issue of continuing further adjuvant hormonal therapy with tamoxifen. At this point she does express interest in proceeding with breast conservation management. As such, she will be scheduled to see Dr. Montague to arrange for the lumpectomy procedure. In the meantime, I also will plan on presenting her case at tumor board. Signed By: Eliecer Kearney M.D. <<Signature on File>>
== END 2021-02-13 09:59 | disposition home or self-care (01) ==
PROVIDERS: PCP Family Medicine; Visit Provider Internal Medicine Medical Oncology
DX: C50.811 Malignant neoplasm of overlapping sites of right female breast (principal); Z17.0 Estrogen receptor positive status [ER+]; I10 Essential (primary) hypertension; E78.5 Hyperlipidemia, unspecified; M19.90 Unspecified osteoarthritis, unspecified site; H81.10 Benign paroxysmal vertigo, unspecified ear; Z79.899 Other long term (current) drug therapy
CPT/HCPCS: 99215

== ENCOUNTER 2021-04-12 15:01 | Outpatient (CLI) | payer MEDICARE, OTHER, SELFPAY ==
--- NOTE | 2021-04-16 08:37 | ONC FU_ITS ---
Dr. Kearney Patient Follow-Up Note Patient: Anastasiia Lopez Unit #: [id number]: [id number] Dicatated By: Eliecer Kearney M.D.Date of Visit:Apr 12, 2021 Onc Med Follow-up/Prog Note Chief Complaint: Breast cancer. History of Present Illness: This is an 85 year-old woman grade 2 infiltrating ductal carcinoma of the right breast, stage IA (T2, N0, M0), ER/OH positive and HER-2/andrew negative. She had presented with a palpable lump in her right breast. Bilateral diagnostic mammogram and bilateral breast ultrasound on 12/18/2018 was BI-RADS Category 5, highly suggestive of malignancy. Findings included a high density spiculated soft tissue mass in the upper outer quadrant of the right breast at the 10:00 position. It measured 2.2 cm in diameter. There was architectural distortion extending anteriorly, posteriorly, and inferiorly from the mass lesion. Ultrasound showed a mass lesion of mixed decreased echotexture with posterior acoustic shadowing and irregular margins measuring 1.9 x 2.1 x 2.3 cm. Ultrasound-guided biopsy the right breast mass on 12/29/2018 showed grade 2 infiltrating ductal carcinoma. Breast prognostic profile ER positive at 99% and OH positive at 94%, both with strong intensity. The tumor was negative for overexpression of HER-2/andrew, 2+ by IHC and amplification ratio by FISH of 1.0 with 2.4 HER2 copies/cell. The Ki-67 was intermediate at 19%. I had seen her initially on 01/13/2019. Her her preliminary indication was that she did not want to pursue any further treatment for the breast cancer. However, after discussing it with her, she did agree to proceed with lumpectomy and axillary sentinel lymph node biopsy. The procedure was performed on 02/04/2019. Pathology showed grade 2 invasive ductal carcinoma measuring 2.4 cm in greatest dimension. The margins were not involved, the closest being the deep posterior margin measured at 0.4 cm. 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 There was no involvement in 1 axillary sentinel lymph node. I had seen her initially on 02/18/2019. She was agrreable to adjuvant hormonal therapy with an aromatase inhibitor. She opted not to take radiation. Her baseline Dexa scan showed osteopenia with T score -1.7 in the lumbar spine, -1.6 in the left hip, and -1.7 in the right hip. She began treatment with anastrozole 1 mg daily on 03/23/2019. She had stopped it somewhere around the beginning of September due to swelling in her legs and feet. I had seen her for a follow-up visit on 11/04/2019. At that point her blood pressure was still elevated, and I had her start triamterene/HCTZ for her hypertension and swelling. However, within a month it had to be stopped due to development of a hypersensitivity skin eruption. She was then started on amlodipine 5 mg daily, which had to be stopped because of swelling. As of 01/27/2020 her blood pressure medication was changed to metoprolol 25 mg twice daily. She tolerated it well and as of her follow-up visit on 02/23/2020 she began adjuvant hormonal therapy with exemestane 25 mg daily. She had stopped the exemestane within a short time due to recurrence of her skin eruption, but that appeared to have been related to her pharmacy having inadvertently refilled her amlodipine prescription rather than metoprolol. At her follow-up visit on 04/06/2020 she restarted the metoprolol and I also gave her doxycycline for the skin eruption. The exemestane remained on hold. As of her follow-up visit in April 2020 the skin eruption had continued to improve and she then restarted the exemestane at 25 mg daily. Initially she was tolerating it well. However, on 07/06/2019 she called and reported having developed generalized pain, severe fatigue, and depression. The exemestane was again put on hold. She was seen for a follow-up visit on 08/28/2020. She was feeling much better off the exemestane, and at that point it was pretty clear that she was not going to tolerate treatment with an aromatase inhibitor. I had talked her about the possibility of continuing adjuvant hormonal therapy with tamoxifen. After reviewing side effects with her, she opted not to have any further treatment. She has been in good general health. Her other medical illnesses inclued hypertension, hyperlipidemia, degenerative arthritis, and benign positional vertigo. She is a nonsmoker. INTERIM HISTORY: Her surveillance diagnostic mammogram on 01/02/2021 was BI-RADS 0 with findings of a new 6 mm nodule at the lumpectomy site in the right breast. Additional mammographic views and right breast ultrasound on 01/18/2021 were BI-RADS 4, suspicious, with ultrasound showing a hyperechoic mass at the 1 o'clock position of the right breast 1 cm from the nipple. It measured 7 x 6 x 7 mm and was noted to correspond to the mammographic abnormality. Ultrasound directed biopsy of the mass on 02/06/2021 showed grade 2 invasive ductal carcinoma. The breast prognostic profile showed ER positive at 99% and OH positive at 99%. The tumor was negative for overexpression of HER-2/andrew, 2+ by IHC, but with amplification ratio by FISH of 1.0 with 2.6 HER-2 copies/cell. The Ki-67 was favorable at 8%. I had seen her for a follow-up visit on 02/13/2021. As the treatment for her breast cancer in 2019 had not included radiation, she was given the option to proceed with breast conservation management versus mastectomy. At that point she opted to proceed with breast conservation, and on 02/27/2020 when she underwent right breast lumpectomy. She refused axillary sentinel lymph node biopsy. Pathology on the lumpectomy showed grade 2 invasive ductal carcinoma measuring 1.1 cm. The margins were free of tumor, the closest being the superior and superficial margins which measured at 0.3 cm. She is seen now to discuss further management. She is been extremely anxious about the prospect of undergoing radiation, to the point that she cannot sleep and cannot do anything. Medications: Glucosamine HCl 1 Tablet (of 1000 mg) Oral daily, healthy feet and nerve 1 Capsule daily, Metoprolol Succinate ER 1 Tablet (of 25 mg) Tablet SR 24 HR Oral daily Allergies: amLODIPine Besylate and sulfa. Vital Signs: Performed on Apr 12, 2021 15:23 Height - 65.50 in Weight - 156.4 lbs (HIGH) BSA - 1.79 sq.m BMI - 25.63 Temperature - 97.6 F (LOW) Pulse - 69 /min Respiration - 18 /min BP - 156/89 mm(hg) (HIGH) O2 Sat - 95 % (LOW) Pain - 0 Fatigue - 0 Problem List: 1. Grade 2 infiltrating ductal carcinoma of the right breast, ER/OH positive and HER-2/andrew negative. Her disease was stage IA ( T2, N0, M0) at initial diagnosis in December 2018. She now has evidence of recurrence at the lumpectomy site in the right breast. 2. Hypertension. 3. Hyperlipidemia, not requiring medication. 4. Degenerative arthritis. 5. Benign positional vertigo. 6. Her baseline DEXA scan showed evidence of osteopenia with T score -1.7 in the lumbar spine, -1.6 in the left hip, and -1.7 in the right hip. Problems Addressed with this Encounter and Plan: Patient with grade 2 infiltrating ductal carcinoma of the right breast, ER/OH positive and HER-2/andrew negative. She underwent lumpectomy with axillary sentinel lymph node biopsy on 02/04/2019. Her disease was stage IA ( T2, N0, M0) at initial diagnosis. She opted to not undergo radiation. On 03/23/2019 she began adjuvant hormonal therapy with anastrozole 1 mg daily. She had initially been tolerating the anastrozole with no adverse effects other than her blood pressure had become mildly elevated. Sometime around the end of September 2019 she had stopped the anastrozole due to swelling in her legs and feet. Her further clinical course was complicated by persistent hypertension, but it eventually was managed adequately with metoprolol. As of 02/23/2020 she began adjuvant hormonal therapy with exemestane 25 mg daily. She had stopped it again within a couple of weeks due to recurrence of a skin eruption on her face and neck, but that apparently was due to her pharmacy having refilled her amlodipine instead of metoprolol. In April 2020 she was able to restart exemestane 25 mg daily. Initially she tolerated well. However as of 07/06/2020 it had to be stopped due to development of severe generalized musculoskeletal pain, fatigue, and depression. As of her follow-up visit on 08/28/2020 she was feeling much better. At that point she was given the option to continue adjuvant hormonal therapy with tamoxifen. After reviewing potential side effects with her, she opted not to have any further treatment. She was then found to have new lesion at the lumpectomy site in the right breast on her diagnostic surveillance mammogram in December 2020. On her further mammographic views and right breast ultrasound the lesion appeared suspicious, and ultrasound directed biopsy on 02/06/2021 was positive for grade 2 invasive ductal carcinoma, ER/OH positive and HER-2 negative. I had seen her for a follow-up visit on 02/13/2021, and at that point she indicated desire to proceed with breast conservation management. She then underwent right breast lumpectomy on 02/26/2021. Pathology showed grade 2 invasive ductal carcinoma measuring 1.1 cm. The margins were free. She refused axillary sentinel lymph node biopsy. She is aware that the standard treatment following lumpectomy is to proceed with radiation to the breast, but she is extremely anxious about radiation, to the point that she is virtually unable to function. The other options are to proceed now with mastectomy or defer treatment until there is further recurrence of the breast cancer. The concern with the latter approach is that she may recur with metastatic disease, particularly in view of the fact that she has not been able to tolerate adjuvant hormonal therapy. Nonetheless, she prefers for now to just continue with observation/expectant management. As such, I will see her again in 3 months. Signed By: Eliecer Kearney M.D. <<Signature on File>>
== END 2021-04-12 15:02 | disposition home or self-care (01) ==
PROVIDERS: PCP Family Medicine; Visit Provider Internal Medicine Medical Oncology
DX: C50.911 Malignant neoplasm of unspecified site of right female breast (principal); Z17.0 Estrogen receptor positive status [ER+]; I10 Essential (primary) hypertension; E78.2 Mixed hyperlipidemia; M85.88 Other specified disorders of bone density and structure, other site; F41.9 Anxiety disorder, unspecified
CPT/HCPCS: 99214

== ENCOUNTER 2021-07-10 08:51 | Outpatient (CLI) | payer MEDICARE, OTHER, SELFPAY ==
[2021-07-10 09:29] LABS: Basophils % 0.7 %; Eosinophils # 0.1 10^3/uL (0.0-0.8); Eosinophils % 2.3 %; Hematocrit 42.7 % (37.0-47.0); Hemoglobin 13.9 g/dL (11.5-15.3); Lymphocytes % 35.3 %; Mean Corpuscular HGB Conc 32.6 g/dL (30.0-36.0); Mean Corpuscular Hemoglobin 31.6 pg (28.0-34.0); Mean Platelet Volume 9.9 fL (7.4-10.4); Monocytes # 0.4 10^3/uL (0.2-0.9); Monocytes % 7.4 %; Neutrophils # 3.01 10^3/uL (1.8-7.7); Neutrophils % 54.1 %; Nucleated Red Blood Cells % 0 %; Platelet Count 192 10^3/cmm (130-400); Red Cell Distribution Width 13.2 % (12.1-15.1); White Blood Count 5.6 10^3/uL (4.0-10.0)
[2021-07-10 09:45] LABS: Alanine Aminotransferase 11 U/L (0-33); Alkaline Phosphatase 77 IU/L (35-105); Anion Gap 16.1 (5-19); Aspartate Amino Transferase 16 U/L (0-32); Blood Urea Nitrogen 8 mg/dL (8-23); Calcium 9.9 mg/dL (8.5-10.5); Carbon Dioxide 26 mmol/L (22-29); Chloride 104 mmol/L (98-107); Globulin 2.2 g/dL (1.3-4.6); Glucose 63 mg/dL (65-115); Osmolality Calculated 290 mOsm/kg (285-295); Potassium 4.1 mmol/L (3.5-5.1); Sodium 142 mmol/L (136-145); Total Bilirubin 0.9 mg/dL (0.15-1.2); Total Protein 6.2 g/dL (6.6-8.7)
--- NOTE | 2021-07-10 12:41 | ONC FU_ITS ---
Dr. Kearney Patient Follow-Up Note Patient: Anastasiia Lopez Unit #: [id number]: 1935 Dicatated By: Eliecer Kearney M.D.Date of Visit:Jul 10, 2021 Onc Med Follow-up/Prog Note Chief Complaint: Breast cancer. History of Present Illness: This is an 85 year-old woman grade 2 infiltrating ductal carcinoma of the right breast, stage IA (T2, N0, M0), ER/AR positive and HER-2/andrew negative. She had presented with a palpable lump in her right breast. Bilateral diagnostic mammogram and bilateral breast ultrasound on 12/18/2018 was BI-RADS Category 5, highly suggestive of malignancy. Findings included a high density spiculated soft tissue mass in the upper outer quadrant of the right breast at the 10:00 position. It measured 2.2 cm in diameter. There was architectural distortion extending anteriorly, posteriorly, and inferiorly from the mass lesion. Ultrasound showed a mass lesion of mixed decreased echotexture with posterior acoustic shadowing and irregular margins measuring 1.9 x 2.1 x 2.3 cm. Ultrasound-guided biopsy the right breast mass on 12/29/2018 showed grade 2 infiltrating ductal carcinoma. Breast prognostic profile ER positive at 99% and AR positive at 94%, both with strong intensity. The tumor was negative for overexpression of HER-2/andrew, 2+ by IHC and amplification ratio by FISH of 1.0 with 2.4 HER2 copies/cell. The Ki-67 was intermediate at 19%. I had seen her initially on 01/13/2019. Her her preliminary indication was that she did not want to pursue any further treatment for the breast cancer. However, after discussing it with her, she did agree to proceed with lumpectomy and axillary sentinel lymph node biopsy. The procedure was performed on 02/04/2019. Pathology showed grade 2 invasive ductal carcinoma measuring 2.4 cm in greatest dimension. The margins were not involved, the closest being the deep posterior margin measured at 0.4 cm. 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 There was no involvement in 1 axillary sentinel lymph node. I had seen her initially on 02/18/2019. She was agrreable to adjuvant hormonal therapy with an aromatase inhibitor. She opted not to take radiation. Her baseline Dexa scan showed osteopenia with T score -1.7 in the lumbar spine, -1.6 in the left hip, and -1.7 in the right hip. She began treatment with anastrozole 1 mg daily on 03/23/2019. She had stopped it somewhere around the beginning of September due to swelling in her legs and feet. I had seen her for a follow-up visit on 11/04/2019. At that point her blood pressure was still elevated, and I had her start triamterene/HCTZ for her hypertension and swelling. However, within a month it had to be stopped due to development of a hypersensitivity skin eruption. She was then started on amlodipine 5 mg daily, which had to be stopped because of swelling. As of 01/27/2020 her blood pressure medication was changed to metoprolol 25 mg twice daily. She tolerated it well and as of her follow-up visit on 02/23/2020 she began adjuvant hormonal therapy with exemestane 25 mg daily. She had stopped the exemestane within a short time due to recurrence of her skin eruption, but that appeared to have been related to her pharmacy having inadvertently refilled her amlodipine prescription rather than metoprolol. At her follow-up visit on 04/06/2020 she restarted the metoprolol and I also gave her doxycycline for the skin eruption. The exemestane remained on hold. As of her follow-up visit in April 2020 the skin eruption had continued to improve and she then restarted the exemestane at 25 mg daily. Initially she was tolerating it well. However, on 07/06/2019 she called and reported having developed generalized pain, severe fatigue, and depression. The exemestane was again put on hold. She was seen for a follow-up visit on 08/28/2020. She was feeling much better off the exemestane, and at that point it was pretty clear that she was not going to tolerate treatment with an aromatase inhibitor. I had talked her about the possibility of continuing adjuvant hormonal therapy with tamoxifen. After reviewing side effects with her, she opted not to have any further treatment. Her surveillance diagnostic mammogram on 01/02/2021 was BI-RADS 0 with findings of a new 6 mm nodule at the lumpectomy site in the right breast. Additional mammographic views and right breast ultrasound on 01/18/2021 were BI-RADS 4, suspicious, with ultrasound showing a hyperechoic mass at the 1 o'clock position of the right breast 1 cm from the nipple. It measured 7 x 6 x 7 mm and was noted to correspond to the mammographic abnormality. Ultrasound directed biopsy of the mass on 02/06/2021 showed grade 2 invasive ductal carcinoma. The breast prognostic profile showed ER positive at 99% and AR positive at 99%. The tumor was negative for overexpression of HER-2/andrew, 2+ by IHC, but with amplification ratio by FISH of 1.0 with 2.6 HER-2 copies/cell. The Ki-67 was favorable at 8%. I had seen her for a follow-up visit on 02/13/2021. As the treatment for her breast cancer in 2018 had not included radiation, she was given the option to proceed with breast conservation management versus mastectomy. At that point she opted to proceed with breast conservation, and on 02/27/2020 when she underwent right breast lumpectomy. She refused axillary sentinel lymph node biopsy. Pathology on the lumpectomy showed grade 2 invasive ductal carcinoma measuring 1.1 cm. The margins were free of tumor, the closest being the superior and superficial margins which measured at 0.3 cm. I had seen her for a follow-up visit in March to discuss further management of the breast cancer. At that point she had become extremely anxious about the prospect of undergoing radiation to the point that she was unable to sleep or function. As she had not been able to tolerate hormonal therapy, she preferred to just continue with expectant management. Her other medical illnesses inclued hypertension, hyperlipidemia, degenerative arthritis, and benign positional vertigo. She is a nonsmoker. INTERIM HISTORY: She is seen for a follow-up visit. She has been feeling good generally, overall much better. She has normal activity. ECOG score is 0. Her appetite is good. She has gained a little weight. She has no fever, night sweats, or hot flashes. She has not had sore mouth or throat. He does not complain of cough, and she has not been having shortness of breath or chest pain. She has no GI complaints. She reports that her bladder is very active. She has some arthritis pain, mainly in her toes, and she recently sustained a minor injury to her right knee. She has had some stress headaches. She has occasional episodes of vertigo. She has no focal neurologic symptoms. Medications: Glucosamine HCl 1 Tablet (of 1000 mg) Oral daily, healthy feet and nerve 1 Capsule daily, Metoprolol Succinate ER 1 Tablet (of 25 mg) Tablet SR 24 HR Oral daily, Probiotic & Acidophilus Ex St 1 Capsule (of 500 mg) Oral b.i.d. Allergies: amLODIPine Besylate and sulfa. Vital Signs: Performed on Jul 10, 2021 11:30 Height - 65.50 in Weight - 159.4 lbs (HIGH) BSA - 1.81 sq.m BMI - 26.12 Temperature - 98.6 F Pulse - 68 /min Respiration - 16 /min BP - 160/81 mm(hg) (HIGH) O2 Sat - 95 % (LOW) Pain - 0 Fatigue - 1 Physical Examination: Constitutional - She looks good generally, Eyes - Sclerae nonicteric. Conjunctivae clear, ENMT - No lesions noted in the oral cavity, Hematologic/Lymphatic - No cervical or clavicular adenopathy, Respiratory - Lungs are clear with good air movement bilaterally, Cardiovascular - Heart rhythm is regular. There is no murmur, gallop, or rub noted, Breasts - There is mild induration in the area of the lumpectomy scar in the right breast. There are no breast masses noted. There is no axillary adenopathy, Abdomen - Soft. Liver and spleen are not enlarged. There is no abdominal mass or ascites noted and there is no inguinal adenopathy, Extremities - Slgiht edema at the ankles, Integumentary - No skin eruption, Neurologic - No focal neurologic deficits noted. Lab/Imagin,000.CBC shows hemoglobin 13.9 g, white blood cell count 5600, and platelet count comprehensive metabolic profile shows stable renal function with BUN 8 and creatinine 0.7 mg/dL. Bilirubin and liver enzymes are normal. Problem List: 1. Grade 2 infiltrating ductal carcinoma of the right breast, ER/AR positive and HER-2/andrew negative. Her disease was stage IA ( T2, N0, M0) at initial diagnosis in December 2018. She now has evidence of recurrence at the lumpectomy site in the right breast. 2. Hypertension. 3. Hyperlipidemia, not requiring medication. 4. Degenerative arthritis. 5. Benign positional vertigo. 6. Her baseline DEXA scan showed evidence of osteopenia with T score -1.7 in the lumbar spine, -1.6 in the left hip, and -1.7 in the right hip. Problems Addressed with this Encounter and Plan: Patient with grade 2 infiltrating ductal carcinoma of the right breast, ER/AR positive and HER-2/andrew negative. She underwent lumpectomy with axillary sentinel lymph node biopsy on 02/04/2019. Her disease was stage IA ( T2, N0, M0) at initial diagnosis. She opted to not undergo radiation. On 03/23/2019 she began adjuvant hormonal therapy with anastrozole 1 mg daily. She had initially been tolerating the anastrozole with no adverse effects other than her blood pressure had become mildly elevated. Sometime around the end of September 2019 she had stopped the anastrozole due to swelling in her legs and feet. Her further clinical course was complicated by persistent hypertension, but it eventually was managed adequately with metoprolol. As of 02/23/2020 she began adjuvant hormonal therapy with exemestane 25 mg daily. She had stopped it again within a couple of weeks due to recurrence of a skin eruption on her face and neck, but that apparently was due to her pharmacy having refilled her amlodipine instead of metoprolol. In April 2020 she was able to restart exemestane 25 mg daily. Initially she tolerated well. However as of 07/06/2020 it had to be stopped due to development of severe generalized musculoskeletal pain, fatigue, and depression. As of her follow-up visit on 08/28/2020 she was feeling much better. At that point she was given the option to continue adjuvant hormonal therapy with tamoxifen. After reviewing potential side effects with her, she opted not to have any further treatment. She was then found to have new lesion at the lumpectomy site in the right breast on her diagnostic surveillance mammogram in December 2020. On her further mammographic views and right breast ultrasound the lesion appeared suspicious, and ultrasound directed biopsy on 02/06/2021 was positive for grade 2 invasive ductal carcinoma, ER/AR positive and HER-2 negative. I had seen her for a follow-up visit on 02/13/2021, and at that point she indicated desire to proceed with breast conservation management. She then underwent right breast lumpectomy on 02/26/2021. Pathology showed grade 2 invasive ductal carcinoma measuring 1.1 cm. The margins were free. She refused axillary sentinel lymph node biopsy. I had seen her for a follow-up visit in March 2021 to discuss further management of the breast cancer. She had become so anxious about the prospect of undergoing radiation that she was unable to sleep or function. As she had poor tolerance for hormonal therapy, she opted to just continue with expectant management. Thus far during follow-up she has been stable clinically with no evidence of any further recurrence of the breast cancer. I will see her again in 6 months. Signed By: Eliecer Kearney M.D. <<Signature on File>>
== END 2021-07-10 08:52 | disposition home or self-care (01) ==
PROVIDERS: PCP Family Medicine; Visit Provider Internal Medicine Medical Oncology
DX: C50.911 Malignant neoplasm of unspecified site of right female breast (principal); I10 Essential (primary) hypertension; E78.5 Hyperlipidemia, unspecified; M19.90 Unspecified osteoarthritis, unspecified site; H81.10 Benign paroxysmal vertigo, unspecified ear; M85.88 Other specified disorders of bone density and structure, other site; Z17.0 Estrogen receptor positive status [ER+]
CPT/HCPCS: 36415; 80053; 85025; 99214

== ENCOUNTER 2022-01-30 14:13 | Outpatient (CLI) | payer MEDICARE, OTHER, SELFPAY ==
--- NOTE | 2022-01-30 14:35 | MM_ITS ---
WS: [id number] BILATERAL 3D TOMOSYNTHESIS DIGITAL DIAGNOSTIC MAMMOGRAPHY WITH CAD CLINICAL INFORMATION: HX OF BREAST CA COMPARISON: January 01, 2021 TECHNIQUE: Bilateral CC, MLO, and ML views. FINDINGS: Scattered fibroglandular densities bilaterally. Vascular calcification. Prior postoperative changes R IGHT lumpectomy with treatment-related changes and probable scarring. 5 mm ovoid density upper outer RIGHT breast is new from previous. This may represent a small lymph node but indeterminant. Recommend ultrasound for further evaluation. LEFT breast is unremarkable and unchanged. MM/[place] [id number] IMPRESSION: BI-RADS: 0-Incomplete: Need additional imaging evaluation FOLLOW UP: Need Additional Imaging 5 mm ovoid density upper outer RIGHT breast is new from previous. This may repr esent a small lymph node but indeterminant. Recommend ultrasound RIGHT breast f or further evaluation.
== END 2022-01-30 14:14 | disposition home or self-care (01) ==
LOC: RAD 14:15
PROVIDERS: PCP Family Medicine; Visit Provider Internal Medicine Medical Oncology
DX: Z85.3 Personal history of malignant neoplasm of breast (principal)
CPT/HCPCS: 77062; G0279

== ENCOUNTER 2022-02-13 06:58 | Outpatient (CLI) | payer MEDICARE, OTHER, SELFPAY ==
--- NOTE | 2022-02-13 07:25 | US_ITS ---
WS: [id number] ULTRASOUND BREAST RIGHT TECHNIQUE: Ultrasound right breast focused area of concern. CLINICAL INFORMATION: abnormal mammogram COMPARISON: Ultrasound February 06, 2021 and mammogram January 30, 2022 FINDINGS: Ultrasound RIGHT breast upper-outer quadrant. At the 10:00 position 2 cm from the nipple is a small h ypoechoic lesion measuring 6.7 x 5.5 x 3.5 mm. This is taller than wide. This has a solid appearance and recommend further evaluation with ultrasound-guided biopsy. US/US breast RT limited* [id number] IMPRESSION: BI-RADS 4 SUSPICIOUS RECOMMEND ULTRASOUND-GUIDED BIOPSY
== END 2022-02-13 06:59 | disposition home or self-care (01) ==
LOC: RAD 07:00
PROVIDERS: PCP Family Medicine; Visit Provider Internal Medicine Medical Oncology
DX: Z08 Encounter for follow-up examination after completed treatment for malignant neoplasm; Z85.3 Personal history of malignant neoplasm of breast; I10 Essential (primary) hypertension; Z92.21 Personal history of antineoplastic chemotherapy; R92.8 Other abnormal and inconclusive findings on diagnostic imaging of breast; Z79.899 Other long term (current) drug therapy
CPT/HCPCS: 76642; 99214

== ENCOUNTER 2022-02-13 14:24 | Oncology outpatient (recurring) (ONCR) | payer MEDICARE, OTHER, SELFPAY | END 2022-02-13 23:59 | disposition home or self-care (01) | LOC: ONCMED 14:24 | PROVIDERS: PCP Family Medicine; Visit Provider Internal Medicine Medical Oncology | DX: C50.411 Malignant neoplasm of upper-outer quadrant of right female breast (principal); Z17.0 Estrogen receptor positive status [ER+]; I10 Essential (primary) hypertension; R53.0 Neoplastic (malignant) related fatigue; F32.A Depression, unspecified; Z79.899 Other long term (current) drug therapy; Z72.820 Sleep deprivation; R92.8 Other abnormal and inconclusive findings on diagnostic imaging of breast; M79.18 Myalgia, other site; Z08 Encounter for follow-up examination after completed treatment for malignant neoplasm; Z85.3 Personal history of malignant neoplasm of breast; Z92.21 Personal history of antineoplastic chemotherapy | CPT/HCPCS: 76642; 99214; 99215 ==

== ENCOUNTER 2022-03-13 07:50 | Outpatient (CLI) | payer MEDICARE, OTHER, SELFPAY ==
--- NOTE | 2022-03-13 08:07 | US_ITS ---
WS: [id number] ULTRASOUND-GUIDED RIGHT BREAST BIOPSY CLINICAL INFORMATION: suspicious mammogram FINDINGS: The procedure including risks, benefits, and complications were discussed with the patient who agreed to proceed. Using sterile technique patient was prepped and draped in the usual sterile fashion. Aft er 1% lidocaine utilizing real-time ultrasound guidance 5 14-gauge cores were obtained of the RIGHT b reast lesion at the 10 o'clock position. Initial Biopsy clip just distal to the lesion (top hat) difficult to visualize due to dense fibrous t issue. 2nd biopsy clip was placed in the biopsy cavity (ribbon). No immediate complications. Pathology demonstrates A. Breast, right breast mass , ultrasound-guided biopsy: - Invasive ductal carcinoma, of no special type. - Gore Rosales grade 2 (score 7). - Breast profile has been performed and will be reported separately. US/[place] [id number] IMPRESSION: 1. Uncomplicated ultrasound-guided RIGHT breast biopsy. 2. The pathology demonstrates invasive ductal carcinoma. 3. Recommend BREAST SURGERY CONSULTATION. BI-RADS: 6-Known Biopsy-Proven Malignancy FOLLOW UP: Surgical Biopsy Recommended
[2022-03-18 12:05] LABS: Breast Profile ER,PR,HER2,Ki-6 See Report
== END 2022-03-13 07:51 | disposition home or self-care (01) ==
PROVIDERS: PCP Family Medicine; Visit Provider Internal Medicine Medical Oncology
DX: C50.411 Malignant neoplasm of upper-outer quadrant of right female breast (principal); R92.8 Other abnormal and inconclusive findings on diagnostic imaging of breast
CPT/HCPCS: 19083; 88305; 88361; 88374

== ENCOUNTER 2022-03-18 13:12 | Oncology outpatient (recurring) (ONCR) | payer MEDICARE, OTHER, SELFPAY | END 2022-04-15 23:59 | disposition home or self-care (01) | PROVIDERS: PCP Family Medicine; Visit Provider Internal Medicine Medical Oncology | DX: C50.411 Malignant neoplasm of upper-outer quadrant of right female breast (principal); Z17.0 Estrogen receptor positive status [ER+]; I10 Essential (primary) hypertension; R21 Rash and other nonspecific skin eruption; Z79.818 Long term (current) use of other agents affecting estrogen receptors and estrogen levels; Z79.899 Other long term (current) drug therapy | CPT/HCPCS: 99214 ==

== ENCOUNTER 2022-04-25 05:46 | Day surgery (SDC) | payer MEDICARE, OTHER, SELFPAY ==
[2022-04-24 13:22] VITALS: BMI 25.4
[2022-04-25] VITALS (10 sets, daily range): BP systolic 71–170; BP diastolic 49–108; PULSE 76–93; RESP 13–24; TEMP 36.1–36.3; O2SAT 92–100
--- NOTE | 2022-04-25 06:32 | W.PM.OPSUD ---
Surgery/Procedure H&P Update DATE OF PROCEDURE: April 25, 2022 DATE H&P PERFORMED: 04/09/22 H&P UPDATE INFORMATION: No changes to prior documentation PREOP DIAGNOSIS: Recurrent right breast cancer. PLANNED PROCEDURE: Operation Date: 04/25/22 07:00 Proposed Procedures p Mastectomy Simple right 73893,G50.911(Right) - Frandy Montague MD
[2022-04-25] MEDS: sodium chloride 0.9% 1,000 ML 30 ML IV (06:39)
--- NOTE | 2022-04-25 06:44 | ECG_ITS ---
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 Measurements Intervals [place] Rate: 67 P: 73 CO: 187 QRS: 16 QRSD: 86 T: 46 QT: 388 QTc: 412 Interpretive Statements SINUS RHYTHM No previous ECG available for comparison Electronically Signed On 04-25-2022 15:06:03 8TH GRADE TEACHER by Roberto Gray M.D. [id number]
[2022-04-25] MEDS: ceFAZolin 2,000 MG in sodium chloride 0.9% (plus) 50 ML 100 MG IV (07:00)
[2022-04-25] MEDS: neomycin-poly-bacitracin oint 28 gm 1 APPLIC TOPICAL (07:45)
--- NOTE | 2022-04-25 07:47 | P.OP_ITS ---
Operative Report Date of procedure: April 25, 2022 Pre-op diagnosis: Preop Diagnosis Recurrent right breast cancer. Post-op diagnosis: Same. Procedure done: Right simple mastectomy. Specimens removed/disposition: Right breast, suture attached medially. Surgeon: General Surgery Frandy Montague MD Anesthesia: General (By means of laryngeal mask airway) Estimated blood loss: 20 mL IV fluids: 400 mL Complications: None. Procedure: The patient was brought to the operating room and was placed in a supine position on the operating room table. General anesthesia was induced by means of a laryngeal mask airway. The right breast and axilla were prepped and draped in a sterile fashion. An elliptical incision was carried out from the sternum, surrounding the entire nipple areolar complex and the previous breast incision, and coming back together at the inferior aspect of the axilla. Cautery was used to divide the dermis and was used to maintain hemostasis throughout the procedure. Skin flaps were created both superiorly and inferiorly by elevating the skin with skin hooks and using cautery to divide the breast tissue at the junction of the breast tissue and subcutaneous fat. This was carried out down to the chest wall both superiorly and inferiorly as well as medially, encompassing all of the breast tissue. The breast was then taken off of the chest wall using cautery from a medial to lateral direction. Significant vessels seen during the dissection were ligated with ties of 2-0 Vicryl. The dissection was then carried out around the lateral edge of the pectoralis muscle and inferior aspect of the axilla was entered. No enlarged lymph nodes were palpated or seen. An effort was made to remove the tail of Russell into the inferior aspect of the axilla. The specimen was removed. The entire wound was irrigated and some small bleeding points were controlled with cautery. A 19 Slovenian fluted Ez drain was brought through a separate stab incision underneath the incision laterally under the axilla. The drain was sewn in at the skin using a suture of 2-0 silk. The drain was laid along the axilla and up along the anterior chest wall under the skin flaps. The dermis at the incision was brought back together using multiple inverted interrupted sutures of 3-0 Vicryl and the skin was finally approximated using skin erick. Some triple antibiotic ointment was placed over the incision and a sterile fluff dressing and a post mastectomy binder/brassiere followed. The patient was taken to the recovery room in stable condition postoperatively.
--- NOTE | 2022-04-25 08:39 | ANES.PREANE2 ---
Pre-Anesthetic Assessment Height/Weight: Height 1.65 m Weight 69.4 kg Temp Pulse Resp BP Pulse Ox O2 Del Method O2 Flow Rate 97.0 F L 79 20 H 127/108 92 10 04/25/22 08:31 04/25/22 08:31 04/25/22 08:31 04/25/22 08:31 04/25/22 08:31 04/25/22 08:31 04/25/22 08:05 Preop Diagnosis: Recurrent right breast cancer. Operation Date: 04/25/22 07:00 Proposed Procedures p Mastectomy Simple right 92171,G50.911(Right) - Frandy Montague MD Familial anesthetic complications: none Was Beta Isha taken within 24 hours: N/A Was Clonidine taken within 24 hours: N/A Last intake: Intake Last Liquid Date 04/24/22 Last Liquid Time 19:00 Last Solid Date 04/24/22 Last Solid Time 19:00 Social No alcohol and No tobacco Exam alert, oriented x 3, clear to auscultation bilaterally and regular rate & rhythm Airway Submandibular: within normal limits Cervical ROM: within normal limits Mallampati: Class II Dentition: chipped Comments: Comments: Missing several History/ROS No significant history except as noted Musc/skel Osteoarthritis/DJD Anesthetic Plan ASA status: 2 Anesthesia: General Medications/Allergies Home Medications Medication Instructions Recorded Confirmed Last Taken Type lactobacillus combination no.9 4 4,000 mmu cells PO DAILY 03/18/22 04/24/22 Unknown History billion cell capsule (Adult 50 Plus Probiotic) vitamin B complex (B 1 tab PO DAILY 03/18/22 04/24/22 Unknown History Complex-Vitamin B12 tablet) glucosamine sulfate-msm 1 tab PO DAILY 04/24/22 04/24/22 Unknown History hydrocodone 5 mg-acetaminophen 325 1 - 2 tab PO Q5H PRN pain #30 tabs 04/25/22 Unknown Rx mg tablet Allergies Allergy/AdvReac Type Severity Reaction Status Date / Time amlodipine Allergy Unknown ALGY-Hives Verified 04/24/22 13:18 Sulfa (Sulfonamide Allergy Unknown ALGY-Rash Verified 04/25/22 06:15 Antibiotics) Current Medications Generic Name Dose Route Start Last Admin Trade Name Freq PRN Reason Stop Dose Admin Sodium Chloride 1,000 mls @ 30 mls/hr 04/25/22 06:00 04/25/22 06:39 Sodium Chloride 0.9% IV 04/26/22 05:59 30 mls/hr .Q24H PARIS Administration PFSH Anesthesia Medical History Benign paroxysmal positional vertigo Hyperlipidemia Osteoarthritis Osteopenia Surgical History History of cataract surgery History of colonoscopy History of inguinal hernia repair right History of lumpectomy of right breast (02/04/19) Right breast lumpectomy with axillary sentinel lymph node biopsy History of lumpectomy of right breast (02/26/21) For local recurrence Hx of breast biopsy right breast biopsies on 12/29/2018 and on 02/06/2021 Family History (Updated 03/18/22 @ 13:38 by Taylor Peterson LPN) Father Cancer colon cancer Mother Stroke Denies family history of Diabetes CAD (coronary artery disease) Clotting disorder Dementia Hyperlipidemia Psychiatric illness Chronic kidney disease (CKD) Suicide Anesthesia complication Bleeding disorder Lung disease Hypertension Social History Smoking and tobacco status: never smoked Data Anesthesia Cardiac Studies: No Data to Display
--- NOTE | 2022-04-25 09:36 | PC.NURSE ---
BHAVANA drain instructions Patient and family member educated and instructed on drainage of BHAVANA as well as given BHAVANA drainage chart. Patient and family verbalized understanding. Patient given discharge instructions and verbalized understanding as well.
--- NOTE | 2022-04-25 15:35 | ANE.PACU2 ---
Inpatient post-anesthesia follow up: Airway intact: Yes Vital signs: Temperature 97.1 F Pulse Rate 80 Respiratory Rate 16 Blood Pressure 132/68 Pulse Oximetry 93 Oxygen Delivery Me thod Room Air Oxygen Flow Rate 10 Fraction of Inspir ed Oxygen Hydration adequate: Yes Nausea and vomiting: No Pain level: 2 Mental status: Baseline
== END 2022-04-25 09:48 | disposition home or self-care (01) ==
PROVIDERS: PCP Family Medicine; Visit Provider Surgery
PROC: (CPT 19303; principal; 2022-04-25 07:00)
DX: C50.911 Malignant neoplasm of unspecified site of right female breast (principal); E78.5 Hyperlipidemia, unspecified; M19.90 Unspecified osteoarthritis, unspecified site; M81.0 Age-related osteoporosis without current pathological fracture
CPT/HCPCS: 19303; 88309; 93005; J0690; J2704; J3010; J3490; J7030

== ENCOUNTER 2022-08-12 15:54 | Oncology outpatient (recurring) (ONCR) | payer MEDICARE, OTHER, SELFPAY | END 2022-08-13 23:59 | disposition home or self-care (01) | LOC: ONCMED 16:01 | PROVIDERS: PCP Family Medicine; Visit Provider Internal Medicine Medical Oncology | DX: Z08 Encounter for follow-up examination after completed treatment for malignant neoplasm (principal); Z85.3 Personal history of malignant neoplasm of breast; Z90.11 Acquired absence of right breast and nipple | CPT/HCPCS: 99214 ==

== ENCOUNTER 2023-02-10 13:48 | Oncology outpatient (recurring) (ONCR) | payer MEDICARE, SELFPAY | END 2023-02-13 23:59 | disposition home or self-care (01) | LOC: ONCMED 13:49 | PROVIDERS: PCP Family Medicine; Visit Provider Internal Medicine Medical Oncology | DX: C50.411 Malignant neoplasm of upper-outer quadrant of right female breast (principal); Z17.0 Estrogen receptor positive status [ER+]; Z90.13 Acquired absence of bilateral breasts and nipples; Z79.818 Long term (current) use of other agents affecting estrogen receptors and estrogen levels; Z79.899 Other long term (current) drug therapy | CPT/HCPCS: 99213 ==

== ENCOUNTER 2023-03-06 11:13 | Outpatient (CLI) | payer MEDICARE, SELFPAY ==
--- NOTE | 2023-03-06 11:30 | MM_ITS ---
WS: [id number] LEFT 3D TOMOSYNTHESIS DIGITAL MAMMOGRAPHY WITH CAD CLINICAL INFORMATION: ANNUAL - HX BR CA; RT MST HISTORY: RIGHT mastectomy. COMPARISON: 01/30/2022 TECHNIQUE: 3 views of the left breast were obtained. FINDINGS: Scattered fibroglandular densities of the left breast. Vascular calcification. No suspicious focal mass, asymmetry, calcifications, or architectural distortion. No evidence of vaishali gnancy. IMPRESSION: MM/[place] [id number] BI-RADS: 2-Benign FOLLOW UP: 1 Year Follow-up Recommend return to annual diagnostic mammography.
== END 2023-03-06 11:14 | disposition home or self-care (01) ==
PROVIDERS: PCP Family Medicine; Visit Provider Internal Medicine Medical Oncology
DX: Z85.3 Personal history of malignant neoplasm of breast (principal); Z90.11 Acquired absence of right breast and nipple
CPT/HCPCS: 77061; G0279

== ENCOUNTER 2023-08-14 13:45 | Oncology outpatient (recurring) (ONCR) | payer MEDICARE, SELFPAY | END 2023-08-14 23:59 | disposition home or self-care (01) | PROVIDERS: PCP Family Medicine; Visit Provider Internal Medicine Medical Oncology | DX: C50.411 Malignant neoplasm of upper-outer quadrant of right female breast (principal); Z17.0 Estrogen receptor positive status [ER+]; Z90.11 Acquired absence of right breast and nipple | CPT/HCPCS: 99214 ==

== ENCOUNTER 2023-09-11 12:18 | Oncology outpatient (recurring) (ONCR) | payer MEDICARE, SELFPAY | END 2023-09-14 23:59 | disposition home or self-care (01) | PROVIDERS: PCP Family Medicine; Visit Provider Internal Medicine Medical Oncology | DX: Z08 Encounter for follow-up examination after completed treatment for malignant neoplasm (principal); Z85.3 Personal history of malignant neoplasm of breast; Z92.25 Personal history of immunosuppression therapy; Z90.11 Acquired absence of right breast and nipple | CPT/HCPCS: 99212 ==